=== PATIENT | female | born 1975 | race Caucasian/White ===

== ENCOUNTER 2023-11-29 10:30 | Outpatient (RCR) | payer OTHER, SELFPAY | END 2024-03-28 23:59 | disposition home or self-care (01) | PROVIDERS: Visit Provider Family Medicine | DX: M79.601 Pain in right arm (principal); M25.511 Pain in right shoulder; Z74.09 Other reduced mobility; R29.898 Other symptoms and signs involving the musculoskeletal system; Z51.89 Encounter for other specified aftercare | CPT/HCPCS: 97110; 97140; 97162; T1013 ==

== ENCOUNTER 2024-01-14 09:56 | Emergency (ER) | payer OTHER, SELFPAY ==
[2024-01-14 10:17] VITALS: BP 131/85; PULSE 89; RESP 20; TEMP 36.9; O2SAT 99; BMI 24.9
--- NOTE | 2024-01-14 10:18 | ED_ITS ---
HPI - Psych General Time Seen by Provider: 10:18 Date Seen: 01/14/24 Chief Complaint: Psychiatric Problem/Disorder Stated Complaint: Depression Time Seen by Provider: 01/14/24 10:18 Source: patient, RN notes reviewed and old records reviewed Mode of arrival: ambulatory Limitations: no limitations History of Present Illness HPI Narrative: 48-year-old female who presents today with depression. Patient reports history of depression after traumatic injury in which she lost part of a finger on the left hand. 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 Previously, she had been on antidepressants but since she did not have insurance she has not been taking medications or seen a therapist. She reports that she feels hopeless. She reports suicide ideation of jumping in front of a car or crushing a car into something Related Data Previous Rx's ?Medication ?Instructions ?Recorded lorazepam 0.5 mg tablet (Ativan) 0.5 mg PO TID PRN #6 tabs 01/14/24 Allergies Allergy/AdvReac Type Severity Reaction Status Date / Time No Known Drug Allergies Allergy Verified 01/14/24 10:23 [facility] Social History Smoking Status: Never smoker Do you use any of these nicotine containing products: None How often do you have a drink containing alcohol: never How often do you have six or more drinks on one occasion: Never AUDIT-C Alcohol total score: 0 Non-prescribed substance use: denies use Exam Narrative: Exam Narrative: General: Well-developed and well-nourished, no acute distress Head: Atraumatic and normocephalic Eyes: Pupils are equal reactive, extraocular motions intact, conjunctiva clear ENT: External nose and ears are normal, posterior pharynx without erythema or exudate Neck: No midline cervical tenderness, full spontaneous range of motion the neck, trachea midline, no adenopathy Heart: Regular rate and rhythm no murmurs or thrills Lungs: Clear to auscultation bilaterally without wheezes or crackles Abdomen: Soft, nontender, nondistended with active bowel sounds Musculoskeletal: No tenderness, deformity, or edema Neurologic: Awake, alert, and oriented x3, no gross focal neurologic deficits, cranial nerves intact as tested Psych: Admits to depression, suicide ideation with a plan Skin: No rashes Const: Vital Signs, click to edit/add: Vital Signs - 24 hr 01/14/24 10:17 Temperature 98.5 F Pulse Rate [Pulse Oximeter] 89 Respiratory Rate 20 Blood Pressure [Ri ght Upper Arm] 131/85 Pulse Oximetry 99 Oxygen Delivery Me thod Room Air Course Course ED Course: Patient seen examined, presents today with depression. Patient reports stress at work and sounds like she was fired this morning, says she feels desperate and would like to jump from a car or pressure cart something. She is quite tearful, poor eye contact. Will have social work see the patient, with patient can contract for safety could be discharged but with acute stress an underlying history of depression would have low threshold for behavioral health admission. Reevaluation(s) Time of Reevaluation #1: 13:22 Reevaluation #1: Discussed with social work after Behavioral Health evaluation. Patient does not want to be admitted, has family support at home, able contract for safety. Outpatient resources are given along with a small number of Ativan to be used as needed. Vital Signs Vital signs: Initial Vital Signs Temperature 98.5 F 01/14/24 10:17 Temperature Source Temporal Artery Scan 01/14/24 10:17 Pulse Rate 89 01/14/24 10:17 Respiratory Rate 20 01/14/24 10:17 Blood Pressure 131/85 01/14/24 10:17 Blood Pressure Mean 100 01/14/24 10:17 Pulse Oximetry 99 01/14/24 10:17 Oxygen Delivery Method Room Air 01/14/24 10:17 Vital Signs Temperature 98.5 F 01/14/24 10:17 Pulse Rate 89 01/14/24 10:17 Respiratory Rate 20 01/14/24 10:17 Blood Pressure 131/85 01/14/24 10:17 Pulse Oximetry 99 01/14/24 10:17 Oxygen Delivery Method Room Air 01/14/24 10:17 Temperature 98.5 F 01/14/24 10:17 Pulse Rate 89 01/14/24 10:17 Respiratory Rate 20 01/14/24 10:17 Blood Pressure 131/85 01/14/24 10:17 Pulse Oximetry 99 01/14/24 10:17 Oxygen Delivery Method Room Air 01/14/24 10:17 Medications Administered Medications: Discontinued Medications Generic Name Dose Route Start Last Admin Trade Name Freq PRN Reason Stop Dose Admin Acetaminophen 1,000 mg 01/14/24 11:23 01/14/24 11:31 Acetaminophen 500 Mg Tablet PO 01/14/24 11:24 1,000 mg ONCE ONE Administration Discharge Plan Discharge Clinical Impression: Depression, Situational depression Patient Disposition: Home, Self-Care Condition: Stable Instructions: Depression (ED) Additional Instructions: Follow-up with mental health provider as an outpatient Contact [facility] for further mental health resource Activity Level: No Restrictions Discharge Diet: Regular Prescriptions: New lorazepam [Ativan] 0.5 mg tablet 0.5 mg PO TID PRNQty: 6 0RF Follow Up/Referrals: Provider,Not a Local [Primary Care Provider] - Stand Alone Forms: [employer] Info Instructions
--- NOTE | 2024-01-14 10:37 | ED.NURSE ---
Message left with SW to come and assess patient.
[2024-01-14] MEDS: ACETAMINOPHEN 500 MG TABLET 1000 MG PO (11:31)
== END 2024-01-14 13:46 | disposition home or self-care (01) ==
PROVIDERS: Emergency Provider Family Medicine
DX: F32.A Depression, unspecified (principal)
CPT/HCPCS: 99283; 99285; A9270

== ENCOUNTER 2025-01-10 10:58 | Emergency (ER) | payer OTHER, SELFPAY ==
--- OUTSIDE RECORDS SUMMARY | 2025-01-10 11:01 | XMS_ITS | Clinical Summary ---
Author Organization [employer] [facility] Address [address] [place] [id number] Care Team Providers Care Desk Lieutenant Name Role Phone Pcp, No Primary Care Provider Unavailabl e Allergies No known active allergies Medications naproxen (NAPROSYN) 500 mg tabletIndication s:Right arm pain Take 1 Tablet (500 mg) by mouth every 12 hours if needed for Pain. 30 Tablet 1 4 Active lidocaine 5 % topical patchIndications :Right shoulder pain, unspecified chronicity Apply on dry, clean, hairless skin. Apply 1 patch to painful area of skin for up to to 12 hours within 24 hour period. 30 Patch 1 4 Active sertraline (ZOLOFT) 100 mg tabletIndication s:Severe depression (HC) Take 1 Tablet (100 mg) by mouth once daily. 60 Tablet 4 Active Active Problems No known active problems Social History Tobacco Use Types Packs/Day Years Used Date Smoking Tobacco: Never Smokeless Tobacco: Never Tobacco Cessation:Counseling Given: Yes Alcohol Use Standard Drinks/Week Comments Not Currently 0 (1 standard drink = 0.6 oz pur e alcohol) PHQ-2 Answer Date Recorded PHQ-2 TOTAL SCORE 2 03/06/2024 Social Connections Answer Date Recorded Do you often feel lonely or isolated from those around you? 0 11/08/2023 Financial Resource Strain Answer Date R ecorded Difficulty of Paying Living Expenses 3 11/08/2023 Difficulty of Paying Living Expenses Not on file 11/08/2023 Food Insecurity Answer Date Recorded Do you worry your food will run out before you are able to buy more? 1 11/08/2023 Transportation Needs Answer Date Record ed Does lack of transportation keep you from medica l appointments? 1 11/08/2023 Does lack of transportation keep you from work, meetings or getting things that you need? 1 11/08/2023 Housing Stability Answer Date Recorded What is your housing situation today? 1 11/08/2023 Utilities Answer Date Recorded Do you have trouble paying f or utilities (for example, heat, electricity, water, phone)? 1 11/08/2023 Comments No Sex and Gender Information Value Date Recorded Sex Assigned at Not on file Legal Sex Female 10:08 AM [employer] Gender Identity Not on file Sexual Orientation Not on file Obstetrics History Last Filed Vital Signs Vital Sign Reading Time Taken Comments Blood Pressure 106/69 03/06/2024 4:12 PM CDT Pulse 82 03/06/2024 4:12 PM CDT Temperature - - Respiratory Rate - - Oxygen Saturation 100% 12/16/2021 8:47 AM CDT Inhaled Oxygen Concentration - - Weight 76.7 kg (169 lb) 01/24/2024 4:09 PM CDT Height 164.5 cm (5' 4.75) 12/16/2021 8:47 AM CD T Body Mass Index 28.34 12/16/2021 8:47 AM CDT Plan of Treatment Health Maintenance Due Date Last Done Comments Tdap 10/09/1986 HIV for age 15-65 10/09/1990 Hepatitis C screening for age 18-79 10/09/1993 Hepatitis B series for 19+ (1 of 3 - 19+ 3-dose series) 10/09/1994 Tetanus booster 1995 Colonoscopy through age 75 10/09/2020 Lipids for age 45-75 10/09/2020 Mammogram for age 45-75 10/09/2020 BMI (ht and wt on same day) for age 18+ 12/16/2022 12/16/2021, 07/03/2021 COVID-19 vaccine series ( season) 2024 11/22/2021, 11/21/2020, 10/23/2020 Depression screening for age 12+ 03/06/2025 03/06/2024, 01/24/2024, 12/06/2023, Additional history exists Influenza Vaccine (Season Ended) 2025 Pap test for age 21-65 03/14/2027 , 03/14/2024, 11/30/2022, Additional history exists Pneumococcal series for age 6-49 Aged Out No longer eligible based on patient's age to complete this topic Procedures Procedure Name Priority Date/Time Associated Diagnosis Comments [employer] THIN PREP PAP DIAGNOSTIC IMAGED Routine 03/14/2024 1:45 PM CDT from Last 3 Months or Most Recently Relevant to Health Maintenance Results * [employer] THIN PREP PAP DIAGNOSTIC IMAGED (03/14/2024 1:45 PM CDT) Case Report Gynecologic Cytology Report Case: [id number] Authorizing Provider: Sena Pena MD Collected: 03/14/2024 1345 Ordering Location: [facility] Received: 03/15/[address] [place] [address] Center First Screen: Mainor Schulte Specimen: [employer] ThinPrep Vial Diagnostic, Cervix 03/22/2024 2:16 PM CDT [facility] INTERPRETATION/ RESULT NEGATIVE FOR INTRAEPITHELIAL LESION OR MALIGNANCY (NIL) (none) 03/22/2024 2:16 PM CDT [employer] [facility] ENTRAL LABORATORY at 1416 CDT SPECIMEN ADEQUACY Satisfactory for evaluation No endocervical component seen 03/22/2024 2:16 PM CDT [employer] ENTRAL LABORATORY HPV REQUEST HPV and PAP 03/22/2024 2:16 PM CDT [facility] ENTRAL LABOR[facility]ORY Last Pap Result First Pap/Unknown 2:16 PM CDT [employer] [facility] ENTRAL LABORATORY [place] Bx Done Today No 03/22/2024 2:16 PM CDT [employer] [facility] EN[facility] LAB[facility] Additional Information 03/22/2024 2:16 PM CDT [employer] [facility] ENTR[facility] LAB[facility]ORY Comment: Interpreted at [facility] - [facility], [facility] [place] [address] Automated Review Successful 03/22/2024 2:16 PM CDT [employer] [facility] ENTRAL LABORATORY Comment:Specimen processed s uccessfully by automated cinder block maker device, ThinPrep Imaging System, [employer] ANCILLARY TESTING [employer] HPV Ordered, Please see separate report 03/22/2024 2:16 PM CDT [employer] LABORATORY-C ENTRAL LABORATORY Note The pap test is a screening technique, not a diagnostic procedure. It is used primarily to screen for squamous cancers and precursor lesions. Published studies have shown that it is subject to both false negative and false positive results. The pap test should not be used as the sole means to diagnose or exclude pre-malignant and malignant lesions. 03/22/2024 2:16 PM CDT [employer] LABORATORY-C ENTRAL LABORATORY Other SPECIMEN FROM UTERINE CERVIX / Unknown 03/14/2024 1:45 PM CDT 03/15/2024 1:48 PM CDT Sena Pena MD PATHOLOGY/CYTOLOGY Final R esult [facility] LAB[facility]ATORY-CENTRAL LABORATORY [address] [place] [address], [place] from Last 3 Months or Most Recently Relevant to Health Maintenance Insurance [facility] Care Teams Desk Lieutenant Relationship Specialty Start Date End Date Pcp, No . PCP - General 07/03/21
--- OUTSIDE RECORDS SUMMARY | 2025-01-10 11:01 | XMS_ITS | Clinical Summary ---
Author Organization [facility] Address [address] [place] [id number] Care Team Providers Care Signal Maintainer Name Role Phone No Ref-Primary, Physician Primary Care Provider Medications HYDROcodone-acet aminophen (NORCO) 5-325 MG tablet Take 1 tablet by mouth every 4 hours as needed for pain 12 tablet 04/23/2021 Active Immunizations Immunization Administration Dates Next Due TDAP (Adacel,Boostrix) 04/23/2021 Social History Tobacco Use Types Packs/Day Years Used Date Smoking Tobacco: Never Assessed Adolescent Education Answer Date Record ed Getting School Help Needed Not on file 04/24 Comments Unknown Sex and Gender Information Value Date Recorded Sex Assigned at Not on file Legal Sex Female 3:24 AM CDT Gender Identity Not on file Sexual Orientation Not on file Last Filed Vital Signs Vital Sign Reading Time Taken Comments Blood Pressure 123/85 04/23/2021 3:26 AM CDT Pulse 95 04/23/2021 3:26 AM CDT Temperature - - Respiratory Rate 16 04/23/2021 3:26 AM CDT Oxygen Saturation 100% 04/23/2021 3:26 AM CDT Inhaled Oxygen Concentration - - Weight - - Height - - Body Mass Index - - Plan of Treatment Not on file Insurance [facility] [employer] Care Teams Signal Maintainer Relationship Specialty Start Date End Date No Ref-Primary, Physician PCP - General 04/23/21
[2025-01-10 11:20] VITALS: BP 117/75; PULSE 100; RESP 20; TEMP 36.8; O2SAT 99; BMI 27.3
--- NOTE | 2025-01-10 12:22 | CRLHL7_ITS ---
For Patients: As a result of the Century Cures Act, medical imaging exams and procedure reports are released immediately into your electronic medical record. You may view this report before your referring provider. If you have questions, please contact your health care provider. INDICATION: Lower abdominal pain. TECHNIQUE: CT abdomen and pelvis acquired with 85 cc Isovue 370 IV contrast. COMPARISON: None. FINDINGS: Lower chest: Unremarkable. Liver: Unremarkable. Gallbladder and bile ducts: Unremarkable. No stones or inflammation. No biliary dilatation. Pancreas: Unremarkable. No mass or inflammation. Spleen: Unremarkable. Normal in size. No masses. Adrenal glands: Unremarkable. No nodules. Kidneys: Unremarkable. No suspicious masses, stones, or hydronephrosis. GI tract: Mild colonic diverticulosis. Normal in caliber. There is a calcified appendicolith in the appendiceal base, but the appendix is normal in size with no evidence of wall thickening or surrounding inflammatory changes. Vasculature: Abdominal aorta is normal in caliber. Mesenteric arteries are patent. Lymph nodes: No lymphadenopathy. Peritoneum/Abdominal Wall: Unremarkable. No sign of mass or infiltration. No free air or significant free fluid. Pelvis: Unremarkable. Bones: Unremarkable for age. IMPRESSION: No acute findings in the abdomen or pelvis. Please note that all CT scans at this facility use dose modulation, iterative reconstruction, and/or weight-based dosing when appropriate to reduce radiation dose to as low as reasonably achievable. Dictated by Leopoldo Silvestre MD @ 01/10/2025 1:26:04 PM (Electronically Signed)
--- NOTE | 2025-01-10 12:23 | ED.ABDPAIN ---
HPI - Abdominal Pain General Chief Complaint: Abdominal Pain Stated Complaint: 2 months abdominal pain- Time Seen by Provider: 01/10/25 11:00 History of Present Illness HPI narrative: This 49-year-old female comes in reporting severe abdominal pain that has been present most of the past 2 and half months. She states that she has associated nausea but no vomiting. She has also had some diarrhea. She does not report any fevers. The pain is worse when taking food. She ranks the pain at 10/10 in severity. Related Data Previous Rx's ?Medication ?Instructions ?Recorded ketorolac 10 mg tablet 10 mg PO TID 5 days #15 tabs 01/10/25 methylprednisolone 4 mg tablets in See Rx Instructions PO .COMPLEX 01/10/25 a dose pack (Medrol (Florentin)) #21 ea ondansetron HCl 4 mg tablet 4 mg PO Q6H #20 tabs 01/10/25 Allergies Allergy/AdvReac Type Severity Reaction Status Date / Time No Known Drug Allergies Allergy Verified 01/10/25 11:32 Review of Systems Status of ROS Reports: 10 or more systems reviewed and unremarkable except as noted in History and below Narrative Constitutional: No fevers, no weight gain or loss. Eyes: No discharge. No vision changes. HENT: No congestion, no sore throat, no ear pain. Cardiovascular: No chest pain, no palpitations. Respiratory: No shortness of breath, no wheezes, no cough. Gastrointestinal: Abdominal pain with nausea and diarrhea episodes. Genitourinary: No dysuria, no hematuria. Musculoskeletal: Normal range of motion. Skin: No rashes, no pruritis. Neurological: No dizziness, weakness, sensory change, speech change. Endo/Heme/Allergies: No bruising or bleeding. No polydipsia. Pysch: no suicidality, no anxiety, no insomnia. All other systems reviewed and are negative. PFSH PFSH Social History Smoking Status: Never smoker Do you use any of these nicotine containing products: None Second hand tobacco smoke exposure: No How often do you have a drink containing alcohol: never How often do you have six or more drinks on one occasion: Never AUDIT-C Alcohol total score: 0 Non-prescribed substance use: denies use service: No Exam Narrative: Exam Narrative: Constitutional: Well-developed, well-nourished, no acute distress. HEENT: Normocephalic, atraumatic. Neck: Normal range of motion. Nontender. Supple. Heart: Regular. No murmurs. Normal rate. Intact distal pulses. Lungs: Clear to auscultation. No chest discomfort. No wheezes, rhonchi, or rales. Abdomen: Decreased bowel sounds. Tenderness across the lower abdomen. Mild rebound tenderness. Genitalia: Deferred. Back: No midline tenderness. Normal range of motion. Extremities: Normal range of motion. No injury. Skin: Intact. No rash. Warm. No erythema or pallor. Neurologic: No altered sensation. No weakness. Alert and oriented. Psychiatric: No suicidality. No anxiety or depression. No insomnia. Nursing notes and vitals signs are reviewed. Const: Vital Signs, click to edit/add: Vital Signs - 24 hr 01/10/25 11:20 01/10/25 15:31 Temperature 98.3 F 97.8 F Pulse Rate [Pulse Oximeter] 100 89 Respiratory Rate 20 16 Blood Pressure [Ri t Upper Arm] 117/75 107/64 Pulse Oximetry 99 97 Oxygen Delivery Me thod Room Air Room Air Course Vital Signs Vital signs: Initial Vital Signs Temperature 98.3 F 01/10/25 11:20 Temperature Source Oral 01/10/25 11:20 Pulse Rate 100 01/10/25 11:20 Respiratory Rate 20 01/10/25 11:20 Blood Pressure 117/75 01/10/25 11:20 Blood Pressure Mean 89 01/10/25 11:20 Blood Pressure Position Sitting 01/10/25 11:20 Pulse Oximetry 99 01/10/25 11:20 Oxygen Delivery Method Room Air 01/10/25 11:20 Vital Signs Temperature 98.3 F 01/10/25 11:20 Pulse Rate 100 01/10/25 11:20 Respiratory Rate 20 01/10/25 11:20 Blood Pressure 117/75 01/10/25 11:20 Pulse Oximetry 99 01/10/25 11:20 Oxygen Delivery Method Room Air 01/10/25 11:20 Temperature 97.8 F 01/10/25 15:31 Pulse Rate 89 01/10/25 15:31 Respiratory Rate 16 01/10/25 15:31 Blood Pressure 107/64 01/10/25 15:31 Pulse Oximetry 97 01/10/25 15:31 Oxygen Delivery Method Room Air 01/10/25 15:31 Medications Administered Medications: Discontinued Medications Generic Name Dose Route Start Last Admin Trade Name Anahi PRN Reason Stop Dose Admin Hydromorphone HCl 0.5 mg 01/10/25 12:22 01/10/25 12:50 Hydromorphone 0.5 Mg/0.5 Ml Inj IVP 01/10/25 12:23 0.5 mg ONCE ONE Administration Ondansetron HCl 4 mg 01/10/25 12:22 01/10/25 12:50 Ondansetron 2 Mg/Ml Inj IVP 01/10/25 12:23 4 mg ONCE ONE Administration MDM - Abdominal Pain MDM Narrative Medical decision making narrative: This patient comes in with abdominal pain in her lower abdomen for the past 2 months. An IV was established where she did receive Dilaudid 0.5 mg. This brought some relief to her pain. I did obtain CT imaging of her abdomen and pelvis and this returns with normal findings except for an appendical with that seems to be inconsequential. There is no sign of appendicitis. Her white count is normal and C-reactive protein is also normal. I did consult with the surgeon on-call, Dr. Carver who looked at the images and stated that this is not an obvious cause of her pain but nevertheless the patient could be admitted and consider removal of the appendix if desired. I explained these options to the patient and she chose to return home for now and will return if not improving or worsening. I did provide prescriptions for her including Toradol, Zofran, and a Medrol Dose Pack. Patient does state that she has pain in her back also. Her pain may be radiating from her low back into her abdomen. Lab Data Labs: Lab Results 01/10/25 Range/Units 12:56 WBC 5.51 (4.50-11.00) K/uL RBC 4.94 (4.00-5.20) m/uL Hgb 8.8 L (12.0-16.0) gm/dL Hct 31.1 L (33.0-51.0) % MCV 63 L (80-100) fL MCH 18 L (26-34) pg MCHC 28 L (32-36) gm/dL RDW Coeff of Spencer 18.3 H (11.5-15.5) % Plt Count 343 (140-440) K/uL Neut % (Auto) 55.0 (42.0-72.0) % Lymph % (Auto) 34.1 (20-44) % [place] % (Auto) 7.8 (0.0-11.0) % Eos % (Auto) 2.2 (0.0-7.0) % Baso % (Auto) 0.7 (0.0-3.0) % Neut # (Auto) 3.03 (1.7-7.0) K/uL Lymph # (Auto) 1.88 (0.90-2.90) K/uL [place] # (Auto) 0.40 (0.00-0.90) K/UL Eos # (Auto) 0.12 (0.00-0.50) K/uL Baso # (Auto) 0.04 (0.00-0.30) K/uL Abs Immat Gran (auto) 0.01 (0.00-0.30) K/uL Imm/Tot Granulo (auto) 0.2 % Sodium 138 (135-149) mmol/L Potassium 3.8 (3.6-5.1) mmol/L Chloride 103 (96-114) mmol/L Carbon Dioxide 25 (20-32) mmol/L Anion Gap 10 (7-15) mEq/L BUN 18 (5-24) mg/dL Creatinine 0.9 (0.5-1.5) mg/dL Estimated Creat Clear 70.78 Estimated GFR 78 ml/min Glucose 122 H (60-115) mg/dL Calcium 9.8 (8.4-10.6) mg/dL Total Bilirubin 0.3 (0.1-1.5) mg/dL Direct Bilirubin 0.1 (0.0-0.5) mg/dL AST 25 (12-35) U/L ALT 26 (4-35) U/L Alkaline Phosphatase 75 (40-150) U/L C-Reactive Protein < 0.5 L (0.5-1.0) mg/dL Total Protein 8.5 H (6.0-8.3) g/dL Albumin 4.5 (3.3-5.0) g/dL Lipase 89 (23-300) U/L Discharge Plan Discharge Clinical Impression: Abdominal pain Patient Disposition: Home, Self-Care Condition: Stable Additional Instructions: Take medication as prescribed and needed. Use [id number] medicines also as needed and directed. Follow up with MD or return if symptoms are persistent or worsening. Prescriptions: New ondansetron HCl 4 mg tablet 4 mg PO Q6H Qty: 20 0RF ketorolac 10 mg tablet 10 mg PO TID 5 Days Qty: 15 0RF methylprednisolone [Medrol (Florentin)] 4 mg tablets,dose pack See Rx Instructions .ROUTE .COMPLEX Qty: 21 0RF Rx Instructions: orally per package directions Follow Up/Referrals: Provider,Not a Local [Primary Care Provider, Family Practice] Stand Alone Forms: [employer] Info Instructions
[2025-01-10] MEDS: ONDANSETRON 2 MG/ML inj 4 MG IVP (12:50)
[2025-01-10] MEDS: HYDROmorphone 0.5 mg/0.5 ml inj IVP (12:50)
[2025-01-10 13:04] LABS: Basophils Absolute Auto 0.04 K/uL (0.00-0.30); Basophils Percent Auto 0.7 % (0.0-3.0); Eosinophils Absolute Auto 0.12 K/uL (0.00-0.50); Eosinophils Percent Auto 2.2 % (0.0-7.0); Hematocrit 31.1 % (33.0-51.0); Hemoglobin* 8.8 gm/dL (12.0-16.0); Immature Granulocytes Abs Auto 0.01 K/uL (0.00-0.30); Immature Granulocytes Pct Auto 0.2 %; Lymphocytes Absolute Auto 1.88 K/uL (0.90-2.90); Lymphocytes Percent Auto 34.1 % (20-44); Mean Corpuscular HGB Conc 28 gm/dL (32-36); Mean Corpuscular Hemoglobin 18 pg (26-34); Mean Corpuscular Volume 63 fL (80-100); Monocytes Percent Auto 7.8 % (0.0-11.0); Neutrophils Absolute Auto 3.03 K/uL (1.7-7.0); Platelet Count* 343 K/uL (140-440); RDW Coefficient of Variation % 18.3 % (11.5-15.5); Red Blood Count 4.94 m/uL (4.00-5.20); White Blood Count* 5.51 K/uL (4.50-11.00)
[2025-01-10 13:12] LABS: Slide Review Reflex No
[2025-01-10 13:18] LABS: Albumin* 4.5 g/dL (3.3-5.0); Chloride* 103 mmol/L (96-114); Potassium* 3.8 mmol/L (3.6-5.1); Sodium* 138 mmol/L (135-149)
[2025-01-10 13:20] LABS: Alanine Aminotransferase* 26 U/L (4-35); Anion Gap 10 mEq/L (7-15); Aspartate Amino Transferase* 25 U/L (12-35); Blood Urea Nitrogen* 18 mg/dL (5-24); Carbon Dioxide* 25 mmol/L (20-32); Creatinine* 0.9 mg/dL (0.5-1.5); Est. Creatinine Clearance* 70.78; Estimated Glomerular Filt Rate 78 ml/min
[2025-01-10 13:21] LABS: Alkaline Phosphatase* 75 U/L (40-150); Bilirubin Direct* 0.1 mg/dL (0.0-0.5); Bilirubin Total* 0.3 mg/dL (0.1-1.5); Calcium* 9.8 mg/dL (8.4-10.6); Glucose* 122 mg/dL (60-115); Lipase* 89 U/L (23-300); Total Protein* 8.5 g/dL (6.0-8.3)
[2025-01-10 15:26] LABS: C Reactive Protein* < 0.5 mg/dL (0.5-1.0)
[2025-01-10 15:31] VITALS: BP 107/64; PULSE 89; RESP 16; TEMP 36.6; O2SAT 97
== END 2025-01-10 16:13 | disposition home or self-care (01) ==
PROVIDERS: Emergency Provider Emergency Medicine Emergency Medical Services
DX: R10.9 Unspecified abdominal pain (principal); R11.0 Nausea; R19.7 Diarrhea, unspecified
CPT/HCPCS: 36415; 74177; 80048; 80076; 83690; 85025; 86140; 96374; 96375; 99284; 99285; J1171; J2405; Q9967

== ENCOUNTER 2025-01-30 21:12 | Emergency (ER) | payer MEDICAID, OTHER, SELFPAY ==
--- OUTSIDE RECORDS SUMMARY | 2025-01-11 13:50 | XMS_ITS | Encounter Summary ---
Author Organization [facility] Address [address] [place] [address] Care Team Providers Care Manager Corporate Communications Name Role Phone Marlin Veloz Primary Care Provider Reason for Visit * Reason Comments Pelvic Pain Encounter Details Date Type Department Care Team (Late st Contact Info) Description 01/11/2025 1:50 PM CDT Office Visit [place] [facility] [address] [place] [address] Luiz Carrillo APRN,PORFIRIO [address] [place] [address] Social History Tobacco Use Types Packs/Day Years Used Date Smoking Tobacco: Never Smokeless Tobacco: Never Alcohol Use Standard Drinks/Week Comments Not Currently 0 (1 standard drink = 0.6 oz pur e alcohol) Comments Unknown Sex and Gender Information Value Date Recorded Sex Assigned at Not on file Legal Sex Female 9:35 AM PST Gender Identity Female 09/10/2024 5:45 PM PST Sexual Orientation Straight 09/10/2024 5: 45 PM PST documented as of this encounter Last Filed Vital Signs Vital Sign Reading Time Taken Comments Blood Pressure 128/61 01/11/2025 1:17 PM CDT Pulse 91 01/11/2025 1:17 PM CDT Temperature 36.7 C (98 F) 01/11/2025 1:17 PM CDT Respiratory Rate - - Oxygen Saturation 98% 01/11/2025 1:17 PM CDT Inhaled Oxygen Concentration - - Weight 79 kg (174 lb 3.2 oz) 01/11/2025 1:17 PM CDT Height 165.5 cm (5' 5.16) 01/11/2025 1:17 PM CD T Body Mass Index 28.85 01/11/2025 1:17 PM CDT documented in this encounter Progress Notes * Luiz Carrillo, TRACEY,CNM - 01/11/2025 1:45 PM CDT Office Visit Patient Active Problem List Diagnosis Papanicolaou smear of cervix with low grade squamous intraepithelial lesion (LGSIL) Healthy Goals Neck pain, chronic Segmental and somatic dysfunction of cervical region Menorrhagia/menometrorrhagia Migraine headache with aura Heavy menstruation Adjustment disorder with mixed anxiety and depressed mood Female Stress Incontinence Insomnia Overweight (BMI 25-29.9) Segmental and somatic dysfunction of thoracic region Subjective: Jacqueline is a 49 year old here for abdominal pain for 2.5 months. It covers her entire stomach, especially her lower stomach and moves to her back. Nothing makes it better or worse. Went to the ED at [facility] and the doctor told her she had stones after performing an US. She was given Toradol, a steroid pack, and zofran. The pain is 10/10. Has taken gas medication but has not gotten any releif. Pain will sometimes go away for a couple hours but always comes back. Last BM: Today, diarrhea (Not normal) Last BM before today was Wednesday. Usually has a BM every morning that is soft and easy to pass Eating and drinking normally with no impact on her pain Objective: BP 128/61 (Right Arm, Sitting, Regular Adult) Pulse 91 Temp 98 ??F (36.7 ??C) Ht 5' 5.16 (1.655 m) Wt 174 lb 3.2 oz (79 kg) LMP 12/25/2024 (Exact Date) (Tubal ligation) SpO2 98% BMI 28.85 kg/m?? Smoking Status Never BSA 1.91 m?? Physical Exam Vitals reviewed. Constitutional: General: She is in acute distress. HENT: Head: Normocephalic and atraumatic. Cardiovascular: Rate and Rhythm: Normal rate. Pulses: Normal pulses. Heart sounds: Normal heart sounds. Pulmonary: Effort: Pulmonary effort is normal. Breath sounds: Normal breath sounds. Abdominal: General: Bowel sounds are normal. There is no distension. Palpations: Abdomen is soft. There is no mass. Tenderness: There is abdominal tenderness. There is left CVA tenderness and guarding. There is no right CVA tenderness or rebound. Hernia: No hernia is present. Genitourinary: General: Normal vulva. Rectum: Normal. Musculoskeletal: Cervical back: Normal range of motion. Skin: General: Skin is warm and dry. Neurological: Mental Status: She is alert and oriented to person, place, and time. Psychiatric: Thought Content: Thought content normal. Judgment: Judgment normal. Pelvic exam: External Genitalia: normal appearing with no masses, tenderness or lesions, Vagina: noabnormal discharge or lesions, Cervix: no lesions or cervical motion tenderness, Uterus: normal andnontender, Adnexa: not palpable. UPT: Negative Wet mount: Neg UA: Neg Paperwork from [facility] (Not found in care everywhere) Showed a HGB of 8.2 Assessment and Plan: Present to the ED for further workup and assessment of severe abdominal pain Return to primary care to follow-up with anemia found in [facility] on 01/19/2025 1. Lower abdominal pain (Primary) - [facility] Vaginal Vaginal Routine; Future 2. Acute left-sided thoracic back pain - HCG, QL, URINE Urine Routine; Future - [facility] Vaginal Vaginal Routine; Future - URINALYSIS, COMPLETE W/REFLEX TO CULTURE Urine Routine; Future 3. Encounter for test, result unknown - HCG, QL, URINE Urine Routine; Future Other orders - HCG, QL, URINE Routine - URINALYSIS, COMPLETE W/REFLEX TO CULTURE Routine - RFLX - REFLEXIVE URINE CULTURE Routine - [facility] Routine Luiz Carrillo APRN, CNM 01/11/25 1:45 PM CDT documented in this encounter Plan of Treatment Scheduled Orders Name Type Priority Associated Diagnoses Orde r Schedule URINALYSIS, COMPLETE W/REFLEX TO CULTURE Urine Routine Lab Routine Acute left-sided thoracic back pain 1 Occurrences starting 01/11/2025 until 07/10/2025 documented as of this encounter Procedures Procedure Name Priority Date/Time Associated Diagnosis Comments HCG, QL, URINE Routine 01/11/2025 12:00 AM CDT Lower abdominal pain URINALYSIS, COMPLETE W/REFLEX TO CULTURE Routine 01/11/2025 12:00 AM CDT Lower abdominal pain RFLX - REFLEXIVE URINE CULTURE Routine 01/11/2025 12:00 AM CDT Lower abdominal pain [facility] AGT Routine 01/11/2025 12:00 AM CDT Lower abdominal pain documented in this encounter Results * [facility] AGT Routine (01/11/2025 12:00 AM CDT) SOURCE VAGINA 01/11/2025 2:43 PM CDT [facility] Wet Prep SEE NOTE 01/11/2025 2:43 PM CDT [facility] 01/11/2025 12:0 0 AM CDT 01/11/2025 2:20 PM CDT Narrative [facility] - [facility] - 01/11/2025 2:45 PM CDT EPI CELLS SEEN CLUE CELLS NONE SEEN TRICH NONE SEEN YEAST NONE SEEN us Luiz Carrillo APRN, CNM LAB - NO BLOOD DRAW Sarina l Result [facility] [phone] [facility] [address] [place] [address] * RFLX - REFLEXIVE URINE CULTURE Routine (01/11/2025 12:00 AM CDT) REFLEXIVE URINE CULTURE SEE NOTE 01/11/2025 2:41 PM CDT [facility] 01/11/2025 12:0 0 AM CDT 01/11/2025 2:20 PM CDT Narrative [facility] - 01/11/2025 2:45 PM CDT NO CULTURE INDICATED us Luiz Carrillo APRN, CNM LAB - MICROBIOLOGY AMBUL ATORY Final Result [facility] [address] [place] [address] [facility] [place] [address] [place] [address] * (ABNORMAL) URINALYSIS, COMPLETE W/REFLEX TO CULTURE Routine (01/11/2025 12:00 AM CDT) COLOR YELLOW YELLOW 01/11/2025 2:41 PM CDT [facility] APPEARANCE CLEAR CLEAR 01/11/2025 2:41 PM CDT [facility] SPECIFIC GRAVITY 1.015 1.001 - 1.035 01/11/2025 2:41 PM CDT [facility] PH 5.5 5.0 - 8.0 01/11/2025 2:41 PM CDT [facility] GLUCOSE NEGATIVE NEGATIVE 01/11/2025 2:41 PM CDT [facility] BILIRUBIN NEGATIVE NEGATIVE 01/11/2025 2:41 PM CDT [facility] KETONES NEGATIVE NEGATIVE 01/11/2025 2:41 PM CDT [facility] OCCULT BLOOD NEGATIVE NEGATIVE 01/11/2025 2:41 PM CDT [facility] PROTEIN NEGATIVE NEGATIVE 01/11/2025 2:41 PM CDT [facility] NITRITE NEGATIVE NEGATIVE 01/11/2025 2:41 PM CDT [facility] LEUKOCYTE ESTERASE NEGATIVE NEGATIVE 01/11/2025 2:41 PM CDT [facility] WBC 0-5 0 - 5 /HPF 01/11/2025 2:41 PM CDT [facility] RBC NONE SEEN 0 - 2 /HPF 01/11/2025 2:41 PM CDT [facility] SQUAMOUS EPITHELIAL CELLS 0-5 < OR = 5 /HPF 01/11/2025 2:41 PM CDT [facility] BACTERIA FEW(A) NONE SEEN /HPF 01/11/2025 2:41 PM CDT [facility] HYALINE CAST NONE SEEN NONE SEEN /LPF 01/11/2025 2:41 PM CDT [facility] COMMENTS MODERATE MUCOUS THREADS 01/11/2025 2:41 PM CDT [facility] NOTE SEE NOTE 01/11/2025 2:41 PM CDT [facility] 01/11/2025 12:0 0 AM CDT 01/11/2025 2:20 PM CDT Narrative [facility] - [facility] - 01/11/2025 2:45 PM CDT This urine was analyzed for the presence of WBC, RBC, bacteria, casts, and other formed elements. Only those elements seen were reported. . . Luiz Carrillo APRN, CNM LAB URINE AMBULATORY Fin al Result Performing Organization Address City/[facility]/ZIP Co de Phone Number [facility] - [id number] [phone] [facility] [address] [place] [address] * HCG, QL, URINE Routine (01/11/2025 12:00 AM CDT) HCG, QL, URINE NEGATIVE NEGATIVE 01/11/2025 2:26 PM CDT [facility] 01/11/2025 12:0 0 AM CDT 01/11/2025 2:20 PM CDT Luiz Carrillo APRN, CNM LAB URINE AMBULATORY Fin al Result Performing Organization Address City/[facility] Co de Phone Number [facility] [employer] [facility] [phone] [facility] [address] [place] [address] documented in this encounter Visit Diagnoses Diagnosis Lower abdominal pain- Primary Abdominal pain, other specified site Acute left-sided thoracic back pain Encounter for test, result unknown documented in this encounter Additional Health Concerns Assessment Noted Time PHQ-9 Depression Total Score: 1 05/09/20 24 12:30 PM PDT documented as of this encounter Care Teams Manager Corporate Communications Relationship Specialty Start Date End Date Marlin Veloz [address] [place] [address] PCP - General 09/10/24 documented as of this encounter
--- OUTSIDE RECORDS SUMMARY | 2025-01-16 15:10 | XMS_ITS | Encounter Summary ---
Author Organization [facility] Address [address] [place] [address] Care Team Providers Care Local Company Refrigerated Truck Driver Name Role Phone Marlin Veloz Primary Care Provider [phone] Reason for Referral * Obstetrics & Gynecology (Urgent) - Open Specialty Diagnoses / Procedures Referred By Myra wolf Referred To Contact Diagnoses Generalized abdominal pain Uterine leiomyoma, unspecified location Atiya Boykin CNM [address] [place] [address] Phone: tel: fax: [facility], [address] [place] [address] Phone: tel: fax: Referral ID Status Reason Start Date Expiration Date V isits Requested Visits Authorized [id number] Open Specialty Services Required 01/17/2025 01/17/2026 1 1 Comments Uterine fibroid. Patient has severe pain that was evaluated in the ER, discovered leiomyoma. Reason for Visit * Reason Comments Follow Up Abdominal pain Encounter Details Date Type Department Care Team (Late st Contact Info) Description 01/16/2025 3:10 PM CDT Office Visit [place] Super[facility] [address] [place] [address] Atiya Boykin CNM [address] [place] [address] Social History Tobacco Use Types [...] Sign Reading Time Taken Comments Blood Pressure 108/58 01/16/2025 3:19 PM CDT Pulse 86 01/16/2025 3:19 PM CDT Temperature 36.9 C (98.4 F) 01/16/2025 3:19 PM CDT Respiratory Rate 18 01/16/2025 3:19 PM CDT Oxygen Saturation 97% 01/16/2025 3:19 PM CDT Inhaled Oxygen Concentration - - Weight 80.4 kg (177 lb 3.2 oz) 01/16/2025 3:19 P M CDT Height 165.5 cm (5' 5.16) 01/16/2025 3:19 PM CD T Body Mass Index 29.35 01/16/2025 3:19 PM CDT documented in this encounter Progress Notes * Atiya Boykin, PORFIRIO - 01/17/2025 12:35 PM CDT Office Visit Patient Active Problem List Diagnosis Papanicolaou smear of cervix with low grade squamous intraepithelial lesion (LGSIL) Healthy Goals Neck pain, chronic Segmental and somatic dysfunction of cervical region Menorrhagia/menometrorrhagia Migraine headache with aura Heavy menstruation Adjustment disorder with mixed anxiety and depressed mood Female Stress Incontinence Insomnia Overweight (BMI 25-29.9) Segmental and somatic dysfunction of thoracic region Subjective: Jacquleine is a 49 year old here with continued abdominal pain. She reports that the pain started about2 months ago and worsened on the 12th last week. She was seen at the clinic and then at the ER thatday. It was found that she has a uterine leiomyoma. There was no other indication for the pain. Shereports that the pain remains a 10/10. She is taking Tylenol and Ibuprofen during the day and oxycod one at night. She reports that now she is constipated and has bloating. Last bowel movement was 4 days ago. Objective: BP 108/58 (Right Arm, Sitting, Regular Adult) Pulse 86 Temp 98.4 ??F (36.9 ??C) Resp 18 Ht 5' 5.16 (1.655 m) Wt 177 lb 3.2 oz (80.4 kg) LMP 12/25/2024 (Exact Date) (Tubal ligation) SpO2 97% BMI 29.35 kg/m?? Smoking Status Never BSA 1.92 m?? Physical Exam Constitutional: General: She is in acute distress. Abdominal: General: There is distension. Palpations: Abdomen is soft. There is no mass. Tenderness: There is abdominal tenderness. There is right CVA tenderness and guarding. Hernia: No hernia is present. Neurological: Mental Status: She is alert. Psychiatric: Behavior: Behavior normal. Recent Results (from the past 2 weeks) HCG, QL, URINE Routine Collection Time: 01/11/25 12:00 AM Result Value Ref Range HCG, QL, URINE NEGATIVE NEGATIVE URINALYSIS, COMPLETE W/REFLEX TO CULTURE Routine Collection Time: 01/11/25 12:00 AM Result Value Ref Range COLOR YELLOW YELLOW APPEARANCE CLEAR CLEAR SPECIFIC GRAVITY 1.015 1.001 - 1.035 PH 5.5 5.0 - 8.0 GLUCOSE NEGATIVE NEGATIVE BILIRUBIN NEGATIVE NEGATIVE KETONES NEGATIVE NEGATIVE OCCULT BLOOD NEGATIVE NEGATIVE PROTEIN NEGATIVE NEGATIVE NITRITE NEGATIVE NEGATIVE LEUKOCYTE ESTERASE NEGATIVE NEGATIVE WBC 0-5 0 - 5 /HPF RBC NONE SEEN 0 - 2 /HPF SQUAMOUS EPITHELIAL CELLS 0-5 < OR = 5 /HPF BACTERIA FEW (A) NONE SEEN /HPF HYALINE CAST NONE SEEN NONE SEEN /LPF COMMENTS MODERATE MUCOUS THREADS NOTE SEE NOTE RFLX - REFLEXIVE URINE CULTURE Routine Collection Time: 01/11/25 12:00 AM Result Value Ref Range REFLEXIVE URINE CULTURE SEE NOTE [facility] WET [facility] NFCT AGT Routine Collection Time: 01/11/25 12:00 AM Result Value Ref Range SOURCE VAGINA Wet Prep SEE NOTE BASIC METABOLIC PANEL BMP/CHEM7/PANEL7 (EXTERNAL) Collection Time: 01/11/25 3:40 PM Result Value Ref Range SODIUM 137 136 - 145 mmol/L POTASSIUM 4.1 3.5 - 5.1 mmol/L CHLORIDE 106 98 - 107 mmol/L CO2,TOTAL ANION GAP Unable to calculate. GLUCOSE 88 70 - 99 mg/dL CALCIUM 9.5 8.8 - 10.4 mg/dL BUN 16 6 - 20 mg/dL CREATININE 0.8 0.50 - 0.90 mg/dL BUN/CREAT RATIO 20 10 - 20 eGFR 90 (L) >90 mL/min/1.73m2 Assessment and Plan: Instructed to stop taking oxycodone. Use Tylenol or ibuprofen and heat only for pain. Increase fluid intake, may take an OTC laxative or bulking agent, increase dietary fiber 1. Generalized abdominal pain (Primary) - REFERRAL TO AGRICULTURE INSPECTOR 2. Drug-induced constipation 3. Uterine leiomyoma, unspecified location - REFERRAL TO AGRICULTURE INSPECTOR Atiya Boykin APRN, CNM 01/17/25 12:35 PM CDT documented in this encounter Plan of Treatment Scheduled Referrals Name Type Priority Associated Diagnoses Orde r Schedule REFERRAL TO AGRICULTURE INSPECTOR Referral Urgent Generalized abdominal pain Uterine leiomyoma, unspecified location Ordered: 01/17/2025 documented as of this encounter Visit Diagnoses Diagnosis Generalized abdominal pain- Primary Abdominal pain, generalized Drug-induced constipation Other constipation Uterine leiomyoma, unspecified location documented in this encounter Additional Health Concerns Assessment Noted Time PHQ-9 Depression Total Score: 1 05/09/20 24 12:30 PM PDT documented as of this encounter Care Teams Local Company Refrigerated Truck Driver Relationship Specialty Start Date End Date Marlin Veloz [address] [place] [phone] PCP - General 09/10/24 documented as of this encounter
--- OUTSIDE RECORDS SUMMARY | 2025-01-30 21:14 | XMS_ITS | Clinical Summary ---
Author Organization [facility] Address [address] [place] [id number] Care Team Providers Care Jig Grinder Name Role Phone No Ref-Primary, Physician Primary [...] Plan of Treatment Not on file Insurance [facility] [employer] Member Subscriber Plan / Payer (Ef fective 2021-Present) Name:Morena Hernandez Norma Relation to Subscriber:Employee Name:[employer] Date of :1975 (Home) Address: [address] [place] [address] Payer ID:[id number] Group ID:Not on file Type:Not on file Address: [facility] [address] [place] [address] Care Teams Jig Grinder Relationship Specialty Start Date End Date No Ref-Primary, Physician PCP - General 04/23/21
--- OUTSIDE RECORDS SUMMARY | 2025-01-30 21:14 | XMS_ITS | Clinical Summary ---
Author Organization [facility] & [facility] Address [address] [place] [address] Care Team Providers Care Aircraft Engine Specialist Name Role Phone Kendra Cheney Primary Care Provider [phone] Allergies No known active allergies Medications naproxen [...] mouth once daily. 60 Tablet 4 Active oxyCODONE 5 mg immediate release tabletIndication s:Uterine leiomyoma, unspecified location,Pelvic pain Take 1 Tablet (5 mg) by mouth 2 times daily if needed for Pain. 6 Tablet 5 01/15/20 25 Active Problems No known active problems Encounters Date Type Department Care Team Description 01/18/2025 Telephone [facility] [address] [place] [address] Lamont Botello MD Referral 01/18/2025 Transcribe Orders [facility] [address] [place] [address] Atiya Boykin CNM 01/11/2025 4:13 PM CDT - 01/11/2025 10:22 PM CDT [facility] [address] [place] [address] Aurelia Arellano DO Uterine leiomyoma, unspecified location (Primary Dx); Pelvic pain Discharge Disposition: Home Self Care 01/11/2025 Travel from Last 3 Months Social History Tobacco Use Types Packs/Day Years [...] is your housing situation today? 1 11/08/2023 Interpersonal Safety Answer Date Record ed Are you being hit, kicked, p ushed or yelled at (see row info)? No 01/11/2025 Interpersonal Safety Abuse 12 - 18 Not on file 01/11/2025 Interpersonal Safety Ambulatory Vulnerability No t on file 01/11/2025 Utilities Answer Date Recorded Do you have trouble paying f or utilities (for example, heat, electricity, water, phone)? 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 Gender Identity Not on file Sexual Orientation Not on file Obstetrics History Last Filed Vital Signs Vital Sign Reading Time Taken Comments Blood Pressure 120/73 01/11/2025 3:23 PM CDT Pulse 94 01/11/2025 3:23 PM CDT Temperature 36.7 C (98.1 F) 01/11/2025 3:23 PM CDT Respiratory Rate 16 01/11/2025 3:23 PM CDT Oxygen Saturation 100% 01/11/2025 3:23 PM CDT Inhaled Oxygen Concentration - - Weight 76.7 kg (169 lb) 01/11/2025 3:23 PM CDT Height 164.5 cm (5' 4.75) 01/11/2025 3:23 PM CD T Body Mass Index 28.34 01/11/2025 3:23 PM CDT Plan of Treatment Upcoming Encounters Date Type Department Care Team (Late st Contact Info) Description 02/07/2025 10:40 AM CDT Office Visit [facility] [address] [place] [address] Estela Hinds MBBS [address] [place] [address] Health Maintenance Due Date Last Done Comments (IA) Tdap 10/09/1986 HIV for age 15-65 10/09/1990 [...] 01/24/2024, 12/06/2023, Additional history exists Influenza Vaccine (#1) 2025 Pap test for age 21-65 03/14/2027 , 03/14/2024, 11/30/2022, Additional history exists Pneumococcal series for age 6-49 Aged Out No longer eligible based on patient's age to complete this topic Procedures Procedure Name Priority Date/Time Associated Diagnosis Comments US PELVIS COMPLETE TA AND TV STAT 01/11/2025 9:[address] ABDOMEN PELVIS STONE PROTOCOL WO STAT 01/11/2025 6:33 PM CDT UA W/ SEDIMENT EXAM REFLEXED PER CRITERIA STAT 01/11/2025 5:44 PM CDT CWS PATH REVIEW HEMATOLOGY STAT 01/11/2025 5:05 PM CDT PLATELET ESTIMATE STAT 01/11/2025 5:0 5 PM CDT RED CELL MORPHOLOGY STAT 01/11/2025 5 :05 PM CDT CBC W PLT NO DIFF STAT 01/11/2025 5:0 5 PM CDT ,SERUM QUALITATIVE WILMER 01/11/2025 3:40 PM CDT EXTRA TUBE BLUE Today 01/11/2025 3:40 PM CDT BASIC METABOLIC PANEL STAT 01/11/2025 3:40 PM CDT ETHYLENE PLANT HELPER THIN PREP PAP DIAGNOSTIC IMAGED Routine 03/14/2024 1:45 PM CDT from Last 3 Months or Most Recently Relevant to Health Maintenance Results * US PELVIS COMPLETE TA AND TV (01/11/2025 9:12 PM CDT) Anatomical Region Laterality Modality Pelvis Ultrasound 01/11/2025 9:12 PM CDT Impressions 01/11/2025 9:20 PM CDT Small fibroid within the uterus. Otherwise unremarkable pelvic ultrasound. Narrative 01/11/2025 9:20 PM CDT For Patients: As a result of the Century Cures Act, medical imaging exams and procedure reports are released immediately into your electronic medical record. You may view this report before your referring provider. If you have questions, please contact your health care provider. EXAM: US PELVIS COMPLETE TA AND TV LOCATION: [facility] MEDICAL IMAGING DATE: 01/11/2025 INDICATION: Pain/tenderness COMPARISON: None. TECHNIQUE: Transabdominal scans were performed. Endovaginal ultrasound was performed to better visualize the adnexa. FINDINGS: UTERUS: 9 x 3.1 x 3.7 cm. Normal in size and position with 8 mm fibroid noted within the right uterine body. ENDOMETRIUM: 7 mm. Normal smooth endometrium. RIGHT OVARY: 2.2 x 1.4 x 1 cm. Normal with flow demonstrated. LEFT OVARY: 2.3 x 1.5 x 1.5 cm. Normal with flow demonstrated. No significant free fluid. Procedure Note Andrei Hawthorne MD - 01/11/2025 For Patients: As a result of the Century Cures Act, medical imagingexams and procedure reports are released immediately into your electronicmedical record. You may view this report before your referring provider.If you have questions, please contact your health care provider. EXAM: US PELVIS COMPLETE TA AND TV LOCATION: [facility] MEDICAL IMAGING DATE: 01/11/2025 INDICATION: Pain/tenderness COMPARISON: None. TECHNIQUE: Transabdominal scans were performed. Endovaginal ultrasound wasperformed to better visualize the adnexa. FINDINGS: UTERUS: 9 x 3.1 x 3.7 cm. Normal in size and position with 8 mm fibroidnoted within the right uterine body. ENDOMETRIUM: 7 mm. Normal smooth endometrium. RIGHT OVARY: 2.2 x 1.4 x 1 cm. Normal with flow demonstrated. LEFT OVARY: 2.3 x 1.5 x 1.5 cm. Normal with flow demonstrated. No significant free fluid. IMPRESSION: Small fibroid within the uterus. Otherwise unremarkable pelvicultrasound. Aurelia Arellano DO US Final Result * CT ABDOMEN PELVIS STONE PROTOCOL WO (01/11/2025 6:33 PM CDT) Anatomical Region Laterality Modality Abdomen, Pelvis, AORTA, LIVER, SPLEEN Computed Tomography 01/11/2025 6:33 PM CDT Impressions 01/11/2025 7:11 PM CDT 1. No nephroureterolithiasis. 2. Probable gallbladder sludge. 3. Trace free pelvic fluid. Narrative 01/11/2025 7:11 PM CDT For Patients: As a result of the Cures Act, medical imaging exams and procedure reports are released immediately into your electronic medical record. You may view this report before your referring provider. If you have questions, please contact your health care provider. EXAM: CT ABDOMEN PELVIS STONE PROTOCOL WO LOCATION: [facility] MEDICAL IMAGING DATE: 01/11/2025 INDICATION: Abdominal/flank pain, stone suspected; lower abdominal pain for 2.5 months. Bloating. Intermittent diarrhea. COMPARISON: None. TECHNIQUE: CT scan of the abdomen and pelvis was performed without oral or IV contrast. Multiplanar reformats were obtained. Dose reduction techniques were used. CONTRAST: None. LIMITATIONS: Large FOV FINDINGS: LOWER CHEST: Bibasilar atelectasis HEPATOBILIARY: No biliary dilatation. Probable dependent sludge in the gallbladder. PANCREAS: Unremarkable SPLEEN: Upper limits of normal in size ADRENAL GLANDS: Unremarkable KIDNEY/BLADDER: No nephroureterolithiasis or hydronephrosis. No bladder stones. BOWEL: Normal caliber appendix. No small bowel obstruction. Scattered colonic diverticula. LYMPH NODES: No significant retroperitoneal adenopathy. VASCULATURE: No abdominal aortic aneurysm. PELVIC ORGANS: Trace free fluid. Scattered pelvic phleboliths. MUSCULOSKELETAL: No acute bony abnormalities. Procedure Note Yousif West MD - 01/11/2025 For Patients: As a result of the Cures Act, medical imagingexams and procedure reports are released immediately into your electronicmedical record. You may view this report before your referring provider.If you have questions, please contact your health care provider. EXAM: CT ABDOMEN PELVIS STONE PROTOCOL WO LOCATION: [facility] MEDICAL IMAGING DATE: 01/11/2025 INDICATION: Abdominal/flank pain, stone suspected; lower abdominal painfor 2.5 months. Bloating. Intermittent diarrhea. COMPARISON: None. TECHNIQUE: CT scan of the abdomen and pelvis was performed without oral orIV contrast. Multiplanar reformats were obtained. Dose reductiontechniques were used. CONTRAST: None. LIMITATIONS: Large FOV FINDINGS: LOWER CHEST: Bibasilar atelectasis HEPATOBILIARY: No biliary dilatation. Probable dependent sludge in thegallbladder. PANCREAS: Unremarkable SPLEEN: Upper limits of normal in size ADRENAL GLANDS: Unremarkable KIDNEY/BLADDER: No nephroureterolithiasis or hydronephrosis. No bladderstones. BOWEL: Normal caliber appendix. No small bowel obstruction. Scatteredcolonic diverticula. LYMPH NODES: No significant retroperitoneal adenopathy. VASCULATURE: No abdominal aortic aneurysm. PELVIC ORGANS: Trace free fluid. Scattered pelvic phleboliths. MUSCULOSKELETAL: No acute bony abnormalities. IMPRESSION: 1. No nephroureterolithiasis. 2. Probable gallbladder sludge. 3. Trace free pelvic fluid. Aurelia Knowlesmaryann Arellano DO CT Final Result * (ABNORMAL) UA W/ SEDIMENT EXAM REFLEXED PER CRITERIA (01/11/2025 5:44 PM CDT) COLOR Yellow Yellow Color 01/11/2025 5:54 PM CDT [facility] CLARITY Clear Clear Clarity 01/11/2025 5:54 PM T [facility] SPECIFIC GRAVITY,URINE 1.020 1.010, 1.015, 1.020, 1.025 01/11/2025 5:54 PM T [facility] PH,URINE 5.5 6.0, 7.0, 8.0, 5.5, 6.5, 7.5, 8.5 01/11/2025 5:54 PM T [facility] UROBILINOGEN, QUALITATIVE Normal Normal EU/dl 01/11/2025 5:54 PM T [facility] PROTEIN, URINE Negative Negative mg/dL 01/11/2025 5:54 PM T [facility] GLUCOSE, URINE Negative Negative mg/dL 01/11/2025 5:54 PM T [facility] KETONES,URINE Trace(A) Negative mg/dL 01/11/2025 5:54 PM T [facility] BILIRUBIN,URI NE Negative Negative 01/11/2025 5:54 PM T [facility] OCCULT BLOOD,URINE Negative Negative 01/11/2025 5:54 PM T [facility] NITRITE Negative Negative 01/11/2025 5:54 PM T [facility] LEUKOCYTE ESTERASE Negative Negative 01/11/2025 5:54 PM T [facility] Urine URINE SPECIMEN / Unknown Non-Blood / Unknown 01/11/2025 5:44 PM CDT 01/11/2025 5:50 PM CDT Aureliajocelyn Roth Adan DO URINE Final Result [facility] SENDOUT INTERNAL ZIP [id number] [place] [phone] * CWS PATH REVIEW HEMATOLOGY (01/11/2025 5:05 PM CDT) PATH COMMENT Comment 01/24/2025 11:07 AM CDT [facility] Comment:This is an appended report. These results have been appended to a previously final verified report. Blood BLOOD SPECIMEN / Unknown Non-Lab Venipuncture / Unknown 01/11/2025 5:05 PM CDT 01/11/2025 5:08 PM CDT Narrative [facility] - 01/24/2025 11:07 AM CDT Recommend evaluation for iron deficiency versus thalassemia/hemoglobinopathy. Reviewed by Breann Leary MT, MS ([facility]) 01/15/25 Aurelia Arellano DO LABORATORY Edited Result - Final [facility] SENDOUT INTER[id number] [place] [phone] * (ABNORMAL) RED CELL MORPHOLOGY (01/11/2025 5:05 PM CDT) ELLIPTOCYTES Few 01/11/2025 8:32 PM CDT [facility] RBC COMMENT Present(A ) RBC morphology appears normal, RBC morphology within normal limits for newborns. 01/11/2025 8:32 PM CDT [facility] Blood BLOOD SPECIMEN / Unknown Non-Lab Venipuncture / Unknown 01/11/2025 5:05 PM CDT 01/11/2025 5:08 PM CDT Narrative [facility] - 01/11/2025 8:32 PM CDT RN to order if patient presents with abdominal pain. Aurelia Arellano DO HEMATOLOGY Final Result [facility] SENDOUT INTER[id number] [place] [address] * PLATELET ESTIMATE (01/11/2025 5:05 PM CDT) PLATELET ESTIMATE Adequate Adequate, No estimate 01/11/2025 8:32 PM CDT [facility] Blood BLOOD SPECIMEN / Unknown Non-Lab Venipuncture / Unknown 01/11/2025 5:05 PM CDT 01/11/2025 5:08 PM CDT [facility] - 01/11/2025 8:32 PM CDT RN to order if patient presents with abdominal pain. Aurelia Arellano DO HEMATOLOGY Final Result [facility] SENDOUT [place] [id number] [address] [place] [address] * (ABNORMAL) CBC W PLT NO DIFF (01/11/2025 5:05 PM CDT) WHITE BLOOD COUNT 7.7 4.5 - 11.0 thou/cu mm 01/11/2025 8:32 PM T [facility] RED BLOOD COUNT 4.70 4.00 - 5.20 mil/cu mm 01/11/2025 8:32 PM T [facility] HEMOGLOBIN 8.4(L) 12.0 - 16.0 g/dL 01/11/2025 8:32 PM T [facility] HEMATOCRIT 29.5(L) 33.0 - 51.0 % 01/11/2025 8:32 PM T [facility] MCV 63(L) 80 - 100 fL 01/11/2025 8:32 PM T [facility] MCH 17.9(L) 26.0 - 34.0 pg 01/11/2025 8:32 PM T [facility] MCHC 28.5(L) 32.0 - 36.0 g/dL 01/11/2025 8:32 PM T [facility] RDW 18.2(H) 11.5 - 15.5 % 01/11/2025 8:32 PM T [facility] PLATELET COUNT 295 140 - 440 thou/cu mm 01/11/2025 8:32 PM T [facility] MPV 10.6 6.5 - 11.0 fL 01/11/2025 8:32 PM CDT [facility] NRBC 0.0 % 01/11/2025 8:32 PM CDT [facility] ABS NRBC 0.0 thou /cu mm 01/11/2025 8:32 PM CDT [facility] Blood BLOOD SPECIMEN / Unknown Non-Lab Venipuncture / Unknown 01/11/2025 5:05 PM CDT 01/11/2025 5:08 PM CDT Narrative [facility] - 01/11/2025 8:32 PM CDT RN to order if patient presents with abdominal pain. Aurelia Arellano DO HEMATOLOGY Final Result [facility] SENDOUT INTERNAL ZIP [id number] [place] [phone] * EXTRA TUBE BLUE (01/11/2025 3:40 PM CDT) Blood BLOOD SPECIMEN / Unknown Non-Lab Venipuncture / Unknown 01/11/2025 3:40 PM CDT 01/11/2025 3:45 PM CDT Doctor Unknown LABORATORY Final Result Performing Organization Address City/[facility]/ZIP Co de Phone Number [facility] SENDOUT INTERNAL ZIP [id number] [place] [phone] * ,SERUM QUALITATIVE (01/11/2025 3:40 PM CDT) ,SERU M Negative Negative 01/11/2025 5:00 PM CDT [facility] Blood BLOOD SPECIMEN / Unknown Non-Lab Venipuncture / Unknown 01/11/2025 3:40 PM CDT 01/11/2025 3:44 PM CDT Aurelia Arellano DO CHEMISTRY Final Result [facility] SENDOUT INTERNAL ZIP [id number] [place] [phone] * (ABNORMAL) BASIC METABOLIC PANEL (01/11/2025 3:40 PM CDT) SODIUM 137 136 - 145 mmol/L 01/11/2025 9:00 PM [facility] POTASSIUM 4.1 3.5 - 5.1 mmol/L 01/11/2025 9:00 PM [facility] CHLORIDE 106 98 - 107 mmol/L 01/11/2025 9:00 PM [facility] CO2,TOTAL 01/11/2025 9:00 PM [facility] Comment: Canceled- Questionable Results This is a corrected result. Previously reported as 32 mmol/L with reference range 22-29 mmol/L on 01/11/2025 at 1636 CDT ANION GAP Unable to calculate. 01/11/2025 9:00 PM [facility] GLUCOSE 88 70 - 99 mg/dL 01/11/2025 9:00 PM [facility] CALCIUM 9.5 8.8 - 10.4 mg/dL 01/11/2025 9:00 PM [facility] Comment: Reference ranges for this test were updated on 06/06/2024 to reflect our healthy population more accurately. Reference range changes are not retroactively applied to results, but previous results using the same methodology can be interpreted in the context of the new reference range. BUN 16 6 - 20 mg/dL 01/11/2025 9:00 PM [facility] CREATININE 0.80 0.50 - 0.90 mg/dL 01/11/2025 9:00 PM [facility] BUN/CREAT RATIO 20 10 - 20 9:00 PM [facility] eGFR 90(L) >90 mL/min/1. 73m2 01/11/2025 9:00 PM [facility] Comment:As of 2021, eG FR is calculated by the CKD-EPI creatinine equation without race adjustment. eGFR can be influenced by muscle mass, exercise, and diet. The reported eGFR is an estimation only and is only applicable if the renal function is stable. Blood BLOOD SPECIMEN / Unknown Non-Lab Venipuncture / Unknown 01/11/2025 3:40 PM CDT 01/11/2025 3:44 PM CDT Aurelia Arellano DO CHEMISTRY Final Result [facility] [address] [place] [address], [facility] SENDOUT [address]NAL [id number] [place] [phone] * ETHYLENE PLANT HELPER THIN PREP PAP DIAGNOSTIC IMAGED (03/14/2024 1:45 PM CDT) Case Report Gynecologic Cytology Report Case: [id number] Authorizing Provider: Sena Pena MD Collected: 03/14/2024 1345 Ordering Location: [facility] Received: 03/15/[address] [place] [address] First Screen: Mainor Schulte Specimen: ETHYLENE PLANT HELPER ThinPrep Vial Diagnostic, Cervix 03/22/2024 2:16 PM CDT [facility] INTERPRETATION/ RESULT NEGATIVE FOR INTRAEPITHELIAL LESION OR MALIGNANCY (NIL) (none) 03/22/2024 2:16 PM CDT [facility] at 1416 CDT SPECIMEN ADEQUACY Satisfactory for evaluation No endocervical component seen 03/22/2024 2:16 PM CDT [facility] HPV REQUEST HPV and PAP 03/22/2024 2:16 PM CDT [facility] Last Pap Result First Pap/Unknown 2:16 PM CDT [facility] Martinez Bx Done Today No 03/22/2024 2:16 PM CDT [facility] Additional Information 03/22/2024 2:16 PM CDT [facility] Comment: Interpreted at [facility] - [address] [place] [phone] Automated Review Successful 03/22/2024 2:16 PM CDT [facility] Comment:Specimen processed s uccessfully by automated residential leasing manager device, ThinPrep Imaging System, [employer] ANCILLARY TESTING ETHY[employer]E [employer]ANT HELPER HPV Ordered, Please see separate report 03/22/2024 2:16 PM CDT [facility] Note The pap test [...] and malignant lesions. 03/22/2024 2:16 PM CDT [facility] Other SPECIMEN FROM UTERINE CERVIX / Unknown 03/14/2024 1:45 PM CDT 03/15/2024 1:48 PM CDT us Sena Pena MD PATHOLOGY/CYTOLOGY Final R esult [facility] [address] [place] [address], from Last 3 Months or Most Recently Relevant to Health Maintenance Insurance [facility] Member Subscriber Plan / Payer (Ef fective 2025-Present) Name:Chaparrita Hernandez Relation to Subscriber:Self Name:Chaparrita Hernandez Payer ID:Not on file Group ID:Not on file Type:Not on file Address: FOR [facility] Care Teams Aircraft Engine Specialist Relationship Specialty Start Date End Date [facility] [address] [place], [place] [id number] PCP - General 01/11/25
--- OUTSIDE RECORDS SUMMARY | 2025-01-30 21:14 | XMS_ITS | Clinical Summary ---
Author Organization [facility] Address [address] [place] [address] Care Team Providers Care Rn Progressive Care Name Role Phone Marlin Veloz Primary Care Provider [phone] Source Comments PLEASE NOTE, if this patient is a minor, it may be UNLAWFUL to discuss sensitive information that is contained in these records (such as FAMILY PLANNING, MENTAL HEALTH or SUBSTANCE ABUSE) with the minor patient's parent or other person without the patient's specific authorization.[facility] Allergies No known active allergies Medications oxybutynin XL (DITROPAN-XL) 5 mg 24 hr tablet Take 1 Tablet by mouth daily. 4 Active cholecalciferol (VITAMIN D3) 50 mcg (2,000 unit) tablet Take 1 Tablet by mouth daily. 4 Active albuterol HFA 90 mcg/actuation inhaler Inhale 1-2 puff using inhaler every four to six hours ok to sub any albuterol HFA product per insurance 4 Active Active Problems Problem Noted Date Diagnosed Date Female Stress Incontinence 05/09/2024 Adjustment disorder with mixed anxiety and depre ssed mood 06/25/2023 Insomnia 06/11/2023 Overweight (BMI 25-29.9) 06/11/2023 Migraine headache with aura 10/14/2021 Heavy menstruation 10/14/2021 Menorrhagia/menometrorrhagia 06/18/2020 Papanicolaou smear of cervix with low grade squamous intraepithelial lesion (LGSIL) 03/03/2019 Segmental and somatic dysfunction of cervical re gion 09/16/2018 Segmental and somatic dysfunction of thoracic re gion 09/16/2018 Healthy Goals 08/24/2018 Neck pain, chronic 08/24/2018 Resolved Problems Problem Noted Date Diagnosed Date Resolved Date Cough chronic 05/09/2024 01/11/2025 Pain in right shoulder 07/09/202301/11 Encounter for immunization safety counseling 01/11/2025 Screening for lipid disorders 10/14/2021 01/11/2025 Screening, diabetes mellitus 10/14/2021 01/11/2025 Screening for endocrine disease 10/14/2021 01/11/2025 BMI 28-28.9 10/14/2021 01/11/2025 Presbyopia - OU 03/19/2021 01/11/2025 Astigmatism, bilateral 03/19/202101/11 Blurred vision 03/19/2021 01/11/2025 Preventative health care 05/03/202007/2025 Screening exam for breast cancer 02/27/2019 01/11/2025 Encounters Date Type Department Care Team Description 01/16/2025 3:10 PM CDT Office Visit [facility] [address] [place] [address] Atiya Boykin CNM 01/11/2025 1:50 PM CDT Office Visit [facility] [address] [place] [address] Luiz Carrillo APRN, CNM from Last 3 Months Immunizations Immunization Administration Dates Next Due HPV 9 (Gardasil) 05/09/2024 Moderna COVID-19 Vaccine, re d cap blue label, 12+ Primary Series 11/21/2020,10/23/2020 TDAP 04/23/2021 Family History Medical History Relation Name Comments Hypertension Father Stomach Cancer Maternal Grandfather Diabetes Maternal Grandmother Hypertension Mother Ovarian cancer Neg Uterine Cancer Neg Relation Name Status Comments Father Maternal Grandfather Maternal Grandmother Mother Social History Tobacco Use Types Packs/Day Years Used Date Smoking Tobacco: Never Smokeless Tobacco: Never Tobacco Cessation:Counseling Given: Not Answered Alcohol Use Standard Drinks/Week Comments Not Currently 0 (1 standard drink = 0.6 oz pur e alcohol) Comments Unknown Sex and Gender Information Value Date Recorded Sex Assigned at Not on file Legal Sex Female 9:35 AM PST Gender Identity Female 09/10/2024 5:45 PM PST Sexual Orientation Straight 09/10/2024 5: 45 PM PST Last Filed Vital Signs Vital Sign Reading [...] Mass Index 29.35 01/16/2025 3:19 PM CDT Plan of Treatment Health Maintenance Due Date Last Done Comments HPV Screening 1975 Relationship Safety Screening/Counseling 10/09/1990 Imm-Hepatitis B (1 of 3 - 19 + 3-dose series) 10/09/1994 CT Colonography 10/09/2020 Colonoscopy 10/09/2020 Colorectal Cancer Screening 10/09/2020 FIT/gFOBT 10/09/2020 Fecal DNA 10/09/2020 Flexible Sigmoidoscopy 10/09/2020 Breast Cancer Screening (Mammogram) 05/18/2022 05/18/2020 Pap Smear 06/18/2023 06/18/2020, 02/27/2019 [id number] ( season) 2024 11/22/2021, 11/21/2020, 10/23/2020 Alcohol and Drug Screen 08/02/2024 Depression Annual Screen 08/02/2024 05/09/2024 Imm-Influenza (#1) 2025 Anxiety Screening 05/09/2025 05/09/2024 Cervical Cancer Screening 06/18/2025 Pap + HPV 06/18/2025 06/18/2020 Tobacco Screening 10/25/2025 10/25/2024 Hypertension Screening (#1) 01/16/2026 Diabetes Screening 01/12/2028 01/11/2025, 0 01/11/2025, 10/13/2024, Additional history exists Lipid Screening 05/09/2029 05/09/2024, 10/0 03/2024, 10/14/2021, Additional history exists Imm-DTaP/Tdap/Td (2 - Td or Tdap) 04/23/2031 021 HIV Screening Completed 10/13/2024, 09/30, 10/13/2024 Hepatitis C Screening Completed 10/13/2024, 025 Cervical Ablation/Cold-Knife Conization Discontinued Cervical Cryotherapy Discontinued Colposcopy Discontinued Endometrial Biopsy Discontinued Excision/Leep Discontinued HPV Genotyping Discontinued Vaginal Pap Discontinued Vulvoscopy Discontinued Procedures Procedure Name Priority Date/Time Associated Diagnosis Comments SMR PRIM SRC WET [place]OUNT NFCT AGT Routine 01/11/2025 12:00 AM CDT Lower abdominal pain RFLX - REFLEXIVE URINE CULTURE Routine 01/11/2025 12:00 AM CDT Lower abdominal pain URINALYSIS, COMPLETE W/REFLEX TO CULTURE Routine 01/11/2025 12:00 AM CDT Lower abdominal pain HCG, QL, URINE Routine 01/11/2025 12:00 AM CDT Lower abdominal pain HIV 1/2 AG & AB W/RFLX (4TH GEN) Routine 10/13/2024 9:24 AM CDT HEPATITIS C AB W/RFLX HCV RNA, QT, RT PCR Routine 10/13/2024 9:24 AM CDT Screening examination for sexually transmitted disease HEMOGLOBIN GLYCOSYLATED A1C Routine 10/13/2024 9:24 AM CDT Acute vaginitis LIPIDS W RFLX TO DIRECT LDL Routine 05/09/2024 12:58 PM CDT THIN PREP PAP + HPV RNA E6/E7 + C.TRACHOMATIS + N. GONORRHOEAE (Q) Routine 06/18/2020 4:30 PM ESCROW MANAGER MAMMOGRAM, ABSTRACTED NARRATIVE Routine 05/18/2020 11:59 PM CDT from Last 3 Months or Most Recently Relevant to Health Maintenance Results * HCG, QL, URINE Routine (01/11/2025 12:00 AM CDT) HCG, QL, URINE NEGATIVE NEGATIVE 01/11/2025 2:26 PM CDT [facility] 01/11/2025 12:0 0 AM CDT 01/11/2025 2:20 PM CDT Luiz Carrillo APRN, CNM LAB URINE AMBULATORY Fin al Result [facility] RRL - [facility] [phone] [facility] [address] [place] [address] * (ABNORMAL) URINALYSIS, COMPLETE W/REFLEX TO CULTURE Routine (01/11/2025 12:00 AM CDT) COLOR YELLOW YELLOW 01/11/2025 2:41 PM CDT [facility] APPEARANCE CLEAR CLEAR 01/11/2025 2:41 PM CDT [facility] SPECIFIC GRAVITY 1.015 1.001 - 1.035 01/11/2025 2:41 PM CDT [facility] PH 5.5 5.0 - 8.0 01/11/2025 2:41 PM CDT [facility] GLUCOSE NEGATIVE NEGATIVE 01/11/2025 2:41 PM CDT [facility] BILIRUBIN NEGATIVE NEGATIVE 01/11/2025 2:41 PM CDT [facility] KETONES NEGATIVE NEGATIVE 01/11/2025 2:41 PM CDT [facility] OCCULT BLOOD NEGATIVE NEGATIVE 01/11/2025 2:41 PM CDT [facility] PROTEIN NEGATIVE NEGATIVE 01/11/2025 2:41 PM CDT [facility] NITRITE NEGATIVE NEGATIVE 01/11/2025 2:41 PM CDT [facility] LEUKOCYTE ESTERASE NEGATIVE NEGATIVE 01/11/2025 2:41 PM CDT [facility] WBC 0-5 0 - 5 /HPF 01/11/2025 2:41 PM CDT [facility] RBC NONE SEEN 0 - 2 /HPF 01/11/2025 2:41 PM CDT [facility] SQUAMOUS EPITHELIAL CELLS 0-5 < OR = 5 /HPF 01/11/2025 2:41 PM CDT [facility] BACTERIA FEW(A) NONE SEEN /HPF 01/11/2025 2:41 PM CDT [facility] HYALINE CAST NONE SEEN NONE SEEN /LPF 01/11/2025 2:41 PM CDT [facility] COMMENTS MODERATE MUCOUS THREADS 01/11/2025 2:41 PM CDT [facility] NOTE SEE NOTE 01/11/2025 2:41 PM CDT [facility] 01/11/2025 12:0 0 AM CDT 01/11/2025 2:20 PM CDT Narrative [facility] - [facility] - 01/11/2025 2:45 PM CDT This urine was analyzed for the presence of WBC, RBC, bacteria, casts, and other formed elements. Only those elements seen were reported. . . Luiz Carrillo APRN, CNM LAB URINE AMBULATORY Fin al Result [facility]) [facility] - [facility] [phone] [facility] [address] [place] [address] * RFLX - REFLEXIVE URINE CULTURE Routine (01/11/2025 12:00 AM CDT) REFLEXIVE URINE CULTURE SEE NOTE 01/11/2025 2:41 PM CDT [facility] 01/11/2025 12:0 0 AM CDT 01/11/2025 2:20 PM CDT Narrative [facility] - 01/11/2025 2:45 PM CDT NO CULTURE INDICATED Luiz Carrillo APRN, CNM LAB - MICROBIOLOGY AMBUL ATORY Final Result [facility] [address] [place] [address] [facility] [place] [facility] [address] [place] [address] * SMR PRIM SRC WET MOUNT NFCT AGT Routine (01/11/2025 12:00 AM CDT) SOURCE VAGINA 01/11/2025 2:43 PM CDT [facility] Wet Prep SEE NOTE 01/11/2025 2:43 PM CDT [facility] 01/11/2025 12:0 0 AM CDT 01/11/2025 2:20 PM CDT Narrative [facility] RR - [facility] - 01/11/2025 2:45 PM CDT EPI CELLS SEEN CLUE CELLS NONE SEEN TRICH NONE SEEN YEAST NONE SEEN Luiz Carrillo APRN, CNM LAB - NO BLOOD DRAW Sarina l Result [facility] [phone] [facility] [address] [place] [address] * HEPATITIS C AB W/RFLX HCV RNA, QT, RT PCR (10/13/2024 9:24 AM CDT) Pathologist [facility] HEPATITIS C ANTIBODY NON-REACTI VE NON-REACT DOTTIE 10/16/2024 1:12 PM CDT [facility] Blood Blood / Unknown 10/13/2024 9 :24 AM CDT 10/13/2024 1:12 PM CDT Narrative [facility] - 10/16/2024 1:16 PM CDT . HCV antibody was non-reactive. There is no laboratory evidence of HCV infection. . In most cases, no further action is required. However, if recent HCV exposure is suspected, a test for HCV RNA (test code 45750) is suggested. . For additional information please refer to http://education.Numonyx.Carbonetworks/faq/YQU76s1 (This link is being provided for informational/ educational purposes only.) . [facility] LAB - BLOOD DRAW Final Result Performing Organization Address City/[facility] Co de Phone Number [facility] [address] [place] [address] [facility] [address] [place] [address] * HIV 1/2 AG & AB W/RFLX (4TH GEN) Routine (10/13/2024 9:24 AM CDT) Pathologist [facility] HIV AB NON-REACTI VE NON-REACT DOTTIE 10/16/2024 1:16 PM CDT DATA CONVERSION Comment:See lab report for a ssociated comment(s) 10/13/2024 9:24 AM CDT [facility] Provider Default LAB - BLOOD DRAW Final R esult Performing Organization Address City/[facility] Co de Phone Number DATA CONVERSION * LIPIDS W RFLX TO DIRECT LDL (05/09/2024 12:58 PM CDT) Pathologist [facility] CHOLESTEROL 175 <200 mg/dL 05/10/2024 7:55 AM CDT DATA CONVERSION 05/09/2024 12:5 8 PM CDT [facility] Provider Default LAB - BLOOD DRAW Final R esult Performing Organization Address City/[facility] Co de Phone Number DATA CONVERSION * (ABNORMAL) THIN PREP PAP + HPV RNA E6/E7 + C.TRACHOMATIS + N. GONORRHOEAE (Q) (06/18/2020 4:30 PM ESCROW MANAGER) PREV. PAP * 06/22/2020 9:16 PM ESCROW MANAGER DATA CONVERSION Comment:See lab report for a ssociated comment(s) STATEMENT OF ADEQUACY: * 06/22/2020 9:16 PM ESCROW MANAGER DATA CONVERSION Comment:See lab report for a ssociated comment(s) Comment * 06/22/2020 9:16 PM ESCROW MANAGER DATA CONVERSION Comment:See lab report for a ssociated comment(s) INTERPRETATION/ RESULT *(A) 06/22/2020 9:16 PM ESCROW MANAGER DATA CONVERSION Comment:See lab report for a ssociated comment(s) 06/18/2020 4:30 PM ESCROW MANAGER us [facility] Provider Default LAB - PATHOLOGY AND CYTO LOGY AMBULATORY Final Result DATA CONVERSION * MAMMOGRAM, ABSTRACTED NARRATIVE (05/18/2020 11:59 PM CDT) Anatomical Region Laterality Modality Other 05/18/2020 11:5 9 PM CDT Narrative 05/18/2020 11:59 PM CDT [facility] Provider Default IMG MAMMO Final Re sult from Last 3 Months or Most Recently Relevant to Health Maintenance Care Teams Rn Progressive Care Relationship Specialty Start Date End Date Marlin Veloz [address] [place] [address] PCP - General 09/10/24
--- NOTE | 2025-01-30 21:17 | ED_ITS ---
HPI - General Adult General Time Seen by Provider: 21:17 Date Seen: 01/30/25 Chief complaint: Abdominal Pain Stated complaint: Abdominal pain Time Seen by Provider: 01/30/25 21:17 Source: patient, RN notes reviewed and old records reviewed History of Present Illness HPI narrative: 49-year-old female who comes in today with 2 months of abdominal pain. She has been seen at this emergency department a couple weeks ago, also was seen a [place] [facility] and had a follow-up appointment with [facility] on January 16, his felt her pain is related to the to a uterine leiomyoma. She returns today with ongoing pain. She reports low abdominal pain which comes and goes, also bloating in the upper abdomen. No nausea vomiting, says she feels constipated. Denies fevers or chills, menses have become irregular in last couple of months. Related Data Previous Rx's ?Medication ?Instructions ?Recorded ketorolac 10 mg tablet 10 mg PO TID 5 days #15 tabs 01/10/25 methylprednisolone 4 mg tablets in See Rx Instructions PO .COMPLEX 01/10/25 a dose pack (Medrol (Florentin)) #21 ea ondansetron HCl 4 mg tablet 4 mg PO Q6H #20 tabs 01/10 dicyclomine 20 mg tablet 20 mg PO QID PRN abdominal p ain 01/31/25 #20 tabs ferrous gluconate 324 mg (38 mg 324 mg PO DAILY #30 ta bs 01/31/25 iron) tablet pantoprazole 40 mg tablet,delayed 40 mg PO DAILY #30 t abs 01/31/25 release (Protonix) Allergies Allergy/AdvReac Type Severity Reaction Status Date / Time No Known Drug Allergies Allergy Verified 01/30/25 21:25 [facility] Medical History (Updated 01/30/25 @ 23:06 by Azael Nichols RN) Segmental and somatic dysfunction of cervical region ?M99.01 - Segmental and somatic dysfunction of cervical region (ICD-10) Segmental and somatic dysfunction of thoracic region ?M99.02 - Segmental and somatic dysfunction of thoracic region (ICD-10) Insomnia ?G47.00 - Insomnia, unspecified (ICD-10) Female stress incontinence ?N39.3 - Stress incontinence (female) (male) (ICD-10) Adjustment disorder with mixed anxiety and depressed mood ?F43.23 - Adjustment disorder with mixed anxiety and depressed mood (ICD-10) Migraine headache with aura ?G43.109 - Migraine with aura, not intractable, without status migrainosus (ICD-10) Menometrorrhagia ?N92.1 - Excessive and frequent menstruation with irregular cycle (ICD-10) Menorrhagia ?N92.0 - Excessive and frequent menstruation with regular cycle (ICD-10) Neck pain, chronic ?M54.2 - Cervicalgia (ICD-10) ?G89.29 - Other chronic pain (ICD-10) LGSIL (low grade squamous intraepithelial dysplasia) Generalized abdominal pain ?R10.84 - Generalized abdominal pain (ICD-10) Uterine leiomyoma ?D25.9 - Leiomyoma of uterus, unspecified (ICD-10) Social History Smoking Status: Never smoker Do you use any of these nicotine containing products: None Second hand tobacco smoke exposure: No How often do you have a drink containing alcohol: never How often do you have six or more drinks on one occasion: Never AUDIT-C Alcohol total score: 0 Non-prescribed substance use: denies use service: No Exam Narrative: Exam Narrative: General: Well-developed and well-nourished, see any appears uncomfortable but nontoxic Head: Atraumatic and normocephalic Eyes: Pupils are equal reactive, extraocular motions intact, conjunctiva clear ENT: External nose and ears are normal, posterior pharynx without erythema or exudate Neck: No midline cervical tenderness, full spontaneous range of motion the neck, trachea midline, no adenopathy Heart: Regular rate and rhythm no murmurs or thrills Lungs: Clear to auscultation bilaterally without wheezes or crackles Abdomen: Soft, suprapubic tenderness, nondistended with active bowel sounds Musculoskeletal: No tenderness, deformity, or edema Neurologic: Awake, alert, and oriented x3, no gross focal neurologic deficits, cranial nerves intact as tested Psych: Mood and affect are appropriate Skin: No rashes Const: Vital Signs, click to edit/add: Vital Signs - 24 hr 01/30/25 21:20 01/30/25 22:11 01/30/25 23:56 Temperature 97.3 F L 97.3 F L 97.3 F L Pulse Rate [Right Pulse Oximeter] 94 Respiratory Rate 18 Blood Pressure [Ri ght Upper Arm] 127/77 Pulse Oximetry 98 Oxygen Delivery Me thod Room Air 01/30/25 23:59 01/31/25 00:00 Temperature 98.4 F Pulse Rate [Right Pulse Oximeter] 85 Respiratory Rate 18 Blood Pressure [Ri ght Upper Arm] 124/74 Pulse Oximetry 98 98 Oxygen Delivery Me thod Room Air Course Course ED Course: Reviewed most recent emergency department visit from January 10 which was also for abdominal pain, at that time hemoglobin 8.8 but normal CBC otherwise, normal basic panel, normal hepatic panel in negative CRP, normal lipase. CT scan negative for acute findings. Also reviewed clinic visit from January 16 which was for abdominal pain in uterine leiomyoma, referred security infrastructure engineer and that appointment is upcoming next week. Patient presents today with lower abdominal pain which is been ongoing for 2 months, also constipation and abdominal bloating. Multiple prior emergency department clinic valuation for this. On exam here vital is stable, mild suprapubic tenderness, no palpable masses on exam. Toradol and Bentyl ordered for symptoms, labs ordered, defer further imaging for now given multiple prior imaging studies. Reevaluation(s) Time of Reevaluation #1: 22:54 Reevaluation #1: Urinalysis independently interpreted by me is negative for acute findings. I was able to gain access from patient's records from her visit outside emergency department on January 11, she had a CT abdomen and pelvis at that time which demonstrated gallbladder sludge but no findings of acute cholecystitis. Ultrasound at that time demonstrated an 8 mm fibroid. It is unlikely that this tiny fibroid is the cause of patient's symptoms. She is mostly lower abdominal pain but also some bloating sensation, symptoms could be related to Biliary colic, although she has no upper abdominal tenderness. Hepatic panel and lipase are pending at this time. Anticipate discharge with outpatient follow-up. In reviewed patient's labs, hemoglobin today is 8.5 which is stable for the patient, she has low MCV, low MCH, and elevated RDW. She has had this anemia at prior visits this month but no prior records are available to see how acute this is. With her abdominal bloating, concern for other intra-abdominal process including gastritis, or bleeding from mass. Patient should have colonoscopy EGD performed, will be started on Protonix and iron replacement, additional red cells studies are ordered. Time of Reevaluation #2: 23:18 Reevaluation #2: labs independently interpreted by me with normal lipase and normal hepatic panel. Patient remains vital is stable in the emergency department. We discussed findings today including anemia unknown source, as well as the sludge in the gallbladder and the uterine fibroid which I do not think is the source of patient's symptoms. Patient will be started on Bentyl, Protonix. She should follow-up to have endoscopy done and can follow-up with handstitching machine collar feller as well. Time of Reevaluation #3: 00:42 Reevaluation #3: A long conversation with patient regarding findings and plan. We discussed that I do not think the uterine fibroid is the source of patient's symptoms but I still think she should follow-up with OBGYN for evaluation for other causes of her pelvic pain. She also is wondering about her abnormal menstrual cycles last couple months, I suspect she is approaching menopause. With her generalized abdominal pain and bloating as well as anemia, in concerned about intestinal sources symptoms. Will refer to primary care for evaluation for EGD and colonoscopy. Patient will be discharged with Carafate, Bentyl, oxycodone and follow-up instructions. Vital Signs Vital signs: Initial Vital Signs Temperature 97.3 F L 01/30/25 21:20 Temperature Source Temporal Artery Scan 01/30/25 21:20 Pulse Rate 94 01/30/25 21:20 Pulse Rhythm Regular 01/30/25 21:20 Pulse Strength 3+ Normal 01/30/25 21:20 Respiratory Rate 18 01/30/25 21:20 Blood Pressure 127/77 01/30/25 21:20 Blood Pressure Mean 93 01/30/25 21:20 Blood Pressure Position Supine 01/30/25 21:20 Pulse Oximetry 98 01/30/25 21:20 Oxygen Delivery Method Room Air 01/30/25 21:20 Vital Signs Temperature 97.3 F L 01/30/25 21:20 Pulse Rate 94 01/30/25 21:20 Respiratory Rate 18 01/30/25 21:20 Blood Pressure 127/77 01/30/25 21:20 Pulse Oximetry 98 01/30/25 21:20 Oxygen Delivery Method Room Air 01/30/25 21:20 Temperature 98.4 F 01/31/25 00:00 Pulse Rate 85 01/31/25 00:00 Respiratory Rate 18 01/31/25 00:00 Blood Pressure 124/74 01/31/25 00:00 Pulse Oximetry 98 01/31/25 00:00 Oxygen Delivery Method Room Air 01/31/25 00:00 Medications Administered Medications: Generic Name Dose Route Start Last Admin Trade Name Anahi PRN Reason Stop Dose Admin Oxycodone HCl 5 mg 01/30/25 23:45 01/30/25 23:51 Oxycodone 5 Mg Tablet PO 01/30/25 23:46 5 mg ONCE ONE Administration Discontinued Medications Generic Name Dose Route Start Last Admin Trade Name Anahi PRN Reason Stop Dose Admin Dicyclomine HCl 10 mg 01/30/25 21:45 01/30/25 22:12 Dicyclomine Hcl 10 Mg Capsule PO 01/30/25 21:46 10 mg ONCE ONE Administration Ketorolac Tromethamine 15 mg 01/30/25 21:44 01/30/25 22:11 Ketorolac 15 Mg/Ml Inj IVP 01/30/25 21:45 15 mg ONCE ONE Administration Medical Decision Making Lab Data Labs: Lab Results 01/30/25 01/30/25 Range/Units 22:14 22:59 WBC 6.26 (4.50-11.00) K/uL RBC 4.66 (4.00-5.20) m/uL Hgb 8.5 L (12.0-16.0) gm/dL Hct 29.9 L (33.0-51.0) % MCV 64 L (80-100) fL MCH 18 L (26-34) pg MCHC 28 L (32-36) gm/dL RDW Coeff of [place] 19.0 H (11.5-15.5) % Plt Count 409 (140-440) K/uL Neut % (Auto) 52.7 (42.0-72.0) % Lymph % (Auto) 38.0 (20-44) % [place] % (Auto) 7.2 (0.0-11.0) % Eos % (Auto) 1.3 (0.0-7.0) % Baso % (Auto) 0.6 (0.0-3.0) % Neut # (Auto) 3.30 (1.7-7.0) K/uL Lymph # (Auto) 2.38 (0.90-2.90) K/uL [place] # (Auto) 0.50 (0.00-0.90) K/UL Eos # (Auto) 0.08 (0.00-0.50) K/uL Baso # (Auto) 0.04 (0.00-0.30) K/uL Abs Immat Gran (auto) 0.01 (0.00-0.30) K/uL Imm/Tot Granulo (auto) 0.2 % Sodium 137 (135-149) mmol/L Potassium 4.0 (3.6-5.1) mmol/L Chloride 104 (96-114) mmol/L Carbon Dioxide 25 (20-32) mmol/L Anion Gap 8 (7-15) mEq/L BUN 18 (5-24) mg/dL Creatinine 0.9 (0.5-1.5) mg/dL Estimated Creat Clear 65.29 Estimated GFR 78 ml/min Glucose 95 (60-115) mg/dL Calcium 9.4 (8.4-10.6) mg/dL Iron 26 L (37-170) ug/dL TIBC 536 H (265-497) ug/dL % Saturation 5 L (20-50) % Ferritin 3.8 L (6.24-137.0) ng/mL Total Bilirubin 0.3 (0.1-1.5) mg/dL Direct Bilirubin 0.1 (0.0-0.5) mg/dL AST 30 (12-35) U/L ALT 23 (4-35) U/L Alkaline Phosphatase 68 (40-150) U/L Total Protein 8.5 H (6.0-8.3) g/dL Albumin 4.6 (3.3-5.0) g/dL Lipase 90 (23-300) U/L Urine Color Yellow (Yellow) Urine Appearance Clear (Clear) Urine pH 6.0 (5.0-8.5) Ur Specific [place] <= 1.005 (1.000-1.030) Urine Protein Negative (Negative) Urine Glucose (UA) Negative (Negative) Urine Ketones Negative (Negative) Urine Blood Negative (Negative) Urine Nitrite Negative (Negative) Urine Bilirubin Negative (Negative) Urine Urobilinogen 0.2 (0.2-1.0) Ur Leukocyte Esterase Negative (Negative) Urine RBC 0-2 (0-2) Urine WBC 0-2 (0-5) Ur Squamous Epith Cells Few (None-Few) Urine Bacteria None (None) Lab Acknowledgement Test Added Discharge Plan Discharge Clinical Impression: Abdominal pain, Anemia Patient Disposition: Home, Self-Care Condition: Stable Instructions: Abdominal Pain (ED), Anemia (ED), Heat Pack Application (ED), Pelvic Pain (ED), Colonoscopy (DC) Additional Instructions: Take medications as prescribed Take iron supplement as prescribed Follow-up in clinic as soon as possible Medicamentos seg?n prescripci?n m?dica. [place] el suplemento de danie seg?n prescripci?n m?dica. Consulte en la cl?raphael lo antes posible. Activity Level: Activity as Tolerated Discharge Diet: Regular Prescriptions: New dicyclomine 20 mg tablet 20 mg PO QID PRN (Reason: abdominal pain) Qty: 20 0RF pantoprazole [Protonix] 40 mg tablet,delayed release (DR/EC) 40 mg PO DAILY Qty: 30 0RF ferrous gluconate 324 mg (38 mg iron) tablet 324 mg PO DAILY Qty: 30 0RF No Action ondansetron HCl 4 mg tablet 4 mg PO Q6H Qty: 20 0RF ketorolac 10 mg tablet 10 mg PO TID 5 Days Qty: 15 0RF methylprednisolone [Medrol (Florentin)] 4 mg tablets,dose pack See Rx Instructions .ROUTE .COMPLEX Qty: 21 0RF Rx Instructions: orally per package directions Follow Up/Referrals: Provider,Not a Local [Primary Care Provider, Family Practice] Stand Alone Forms: MyHealth Info Instructions
[2025-01-30 21:20] VITALS: BP 127/77; PULSE 94; RESP 18; TEMP 36.3; O2SAT 98; BMI 29.9
[2025-01-30 22:11] VITALS: TEMP 36.3
[2025-01-30] MEDS: DICYCLOMINE HCL 10 MG CAPSULE PO (22:12)
[2025-01-30 22:29] LABS: Appearance Urine Clear (Clear)
[2025-01-30 22:54] LABS: Hematocrit* 29.9 % (33.0-51.0); Hemoglobin* 8.5 gm/dL (12.0-16.0); Immature Granulocytes Abs Auto 0.01 K/uL (0.00-0.30); Immature Granulocytes Pct Auto 0.2 %; Lymphocytes Absolute Auto 2.38 K/uL (0.90-2.90); Mean Corpuscular HGB Conc 28 gm/dL (32-36); Mean Corpuscular Hemoglobin 18 pg (26-34); Mean Corpuscular Volume 64 fL (80-100); RDW Coefficient of Variation % 19.0 % (11.5-15.5); Red Blood Count* 4.66 m/uL (4.00-5.20); White Blood Count* 6.26 K/uL (4.50-11.00)
[2025-01-30 22:55] LABS: Slide Review Reflex No
[2025-01-30 23:00] LABS: Albumin* 4.6 g/dL (3.3-5.0); Chloride* 104 mmol/L (96-114); Potassium* 4.0 mmol/L (3.6-5.1); Sodium* 137 mmol/L (135-149)
[2025-01-30 23:03] LABS: Alanine Aminotransferase* 23 U/L (4-35); Alkaline Phosphatase* 68 U/L (40-150); Anion Gap 8 mEq/L (7-15); Aspartate Amino Transferase* 30 U/L (12-35); Bilirubin Direct* 0.1 mg/dL (0.0-0.5); Bilirubin Total* 0.3 mg/dL (0.1-1.5); Blood Urea Nitrogen* 18 mg/dL (5-24); Calcium* 9.4 mg/dL (8.4-10.6); Carbon Dioxide* 25 mmol/L (20-32); Creatinine* 0.9 mg/dL (0.5-1.5); Est. Creatinine Clearance* 65.29; Estimated Glomerular Filt Rate 78 ml/min; Glucose* 95 mg/dL (60-115); Total Protein* 8.5 g/dL (6.0-8.3)
[2025-01-30 23:30] LABS: Iron* 26 ug/dL (37-170)
[2025-01-30 23:40] LABS: Percent Iron Saturation 5 % (20-50); Total Iron Binding Capacity 536 ug/dL (265-497)
[2025-01-30 23:56] VITALS: TEMP 36.3
[2025-01-30 23:59] VITALS: O2SAT 98
[2025-01-31] VITALS: BP 124/74; PULSE 85; RESP 18; TEMP 36.9; O2SAT 98
[2025-01-31 01:00] VITALS: BP 121/78; PULSE 81; RESP 18; TEMP 36.9; O2SAT 98
[2025-01-31 01:01] VITALS: BP 121/78; PULSE 81; RESP 18; TEMP 36.9
[2025-02-01 15:10] LABS: Transferrin 434 mg/dL (200-360)
== END 2025-01-31 01:01 | disposition home or self-care (01) ==
PROVIDERS: Emergency Provider Family Medicine
DX: R10.9 Unspecified abdominal pain (principal); D64.9 Anemia, unspecified; M54.50 Low back pain, unspecified; R14.0 Abdominal distension (gaseous)
CPT/HCPCS: 36415; 80048; 80076; 81001; 82728; 83540; 83550; 83690; 84466; 85025; 94761; 96374; 99284; A9270; J1885

== ENCOUNTER 2025-02-09 10:45 | Outpatient (CLI) | payer MEDICAID, SELFPAY ==
--- NOTE | 2025-02-09 10:45 | CRLHL7_ITS ---
For Patients: As a result of the Century Cures Act, medical imaging exams and procedure reports are released immediately into your electronic medical record. You may view this report before your referring provider. If you have questions, please contact your health care provider. INDICATION: ABDOMINAL PAIN COMPARISON: CT 01/10/2025 TECHNIQUE: Real time montaño scale imaging and color Doppler analysis was performed of the gallbladder. FINDINGS: The gallbladder is of normal size and there is no evidence of intraluminal stones or sludge. The gallbladder wall measures 1.7 mm in thickness. The common bile duct is of normal size and measures 5.4 mm in diameter at the level of the rickey hepatis. IMPRESSION: Normal gallbladder ultrasound. Dictated by Lamont Castillo MD @ 02/09/2025 11:13:55 AM (Electronically Signed)
== END 2025-02-09 10:46 | disposition home or self-care (01) ==
PROVIDERS: PCP Internal Medicine; Visit Provider Internal Medicine
DX: R10.9 Unspecified abdominal pain (principal)
CPT/HCPCS: 76705; T1013

== ENCOUNTER 2025-02-19 08:29 | Outpatient (CLI) | payer MEDICAID, OTHER, SELFPAY ==
--- NOTE | 2025-02-19 09:44 | P.ANES_ITS ---
Anesthesia Charges Start Date/Time Anesthesia Start Date: 02/19/25 Anesthesia Start Time: 09:07 Stop Date/Time Anesthesia Stop Date: 02/19/25 Anesthesia Stop Time: 09:42 Coding CPT Codes CPT Codes: ANES UPR LWR GI NDSC PX - 07620 ([id number]) P1 - NORMAL HEALTHY PATIENT, QX - WHEEL MOLDER SVPurvi W/ MED DIRECTION, QK - PIERCING SPECIALIST 2-4 CNCRNT ANES PROC
--- NOTE | 2025-02-19 09:44 | W.ANESCHARGE ---
Anesthesia Charges Start Date/Time Anesthesia Start Date: 02/19/25 Anesthesia Start Time: 09:07 Stop Date/Time Anesthesia Stop Date: 02/19/25 Anesthesia Stop Time: 09:42 Coding CPT Codes CPT Codes: ANES UPR LWR GI NDSC PX - 67576 ([id number]) P1 - NORMAL HEALTHY PATIENT, QX - PHARMACEUTICAL PHYSICIAN SVPurvi W/ MED DIRECTION, QK - TRAFFIC LINE PAINTER 2-4 CNCRNT ANES PROC
--- NOTE | 2025-02-19 09:57 | P.ANES_ITS ---
Anesthesia Charges Start Date/Time Anesthesia Start Date: 02/19/25 Anesthesia Start Time: 09:07 Stop Date/Time Anesthesia Stop Date: 02/19/25 Anesthesia Stop Time: 09:42 Coding CPT Codes CPT Codes: ANES UPR LWR GI NDSC PX - 96937 ([id number]) QK - MANAGER BUDGET 2-4 CNCRNT ANES PROC, QX - TEAM CDL DRIVER SVC W/ MED DIRECTION, P1 - NORMAL HEALTHY PATIENT
--- NOTE | 2025-02-19 09:57 | W.ANESCHARGE ---
Anesthesia Charges Start Date/Time Anesthesia Start Date: 02/19/25 Anesthesia Start Time: 09:07 Stop Date/Time Anesthesia Stop Date: 02/19/25 Anesthesia Stop Time: 09:42 Coding CPT Codes CPT Codes: ANES UPR LWR GI NDSC PX - 94335 ([id number]) QK - CERTIFIED REGISTERED NURSE PRACTITIONER 2-4 CNCRNT ANES PROC, QX - DEPUTY CLERK OF SUPERIOR COURT SVC W/ MED DIRECTION, P1 - NORMAL HEALTHY PATIENT
== END 2025-02-19 08:30 | disposition home or self-care (01) ==
LOC: OP CLINIC 08:30
PROVIDERS: PCP Internal Medicine; Visit Provider Internal Medicine
DX: R10.84 Generalized abdominal pain (principal); R10.13 Epigastric pain; K57.30 Diverticulosis of large intestine without perforation or abscess without bleeding
CPT/HCPCS: 00813; 43239; 45380; 88305; T1013; J2704; J3010

== ENCOUNTER 2025-02-27 13:49 | Outpatient (CLI) | payer MEDICAID, OTHER, SELFPAY ==
--- NOTE | 2025-02-27 14:00 | CRLHL7_ITS ---
For Patients: As a result of the Century Cures Act, medical imaging exams and procedure reports are released immediately into your electronic medical record. You may view this report before your referring provider. If you have questions, please contact your health care provider. INDICATION: Abdominal pain. TECHNIQUE: 7.2 mCi Tc-99m labeled Choletec. 1.56 mcg CCK IV. FINDINGS: Normal uptake and excretion of tracer by the liver. Activity is identified promptly within the gallbladder and extrahepatic biliary tree between 5 and 10 minutes after injection. The gallbladder continues to fill up to 1 hour. No biliary leak. After the administration of CCK, the gallbladder ejection fraction is calculated at 97 percent which is within normal limits. IMPRESSION: 1. Normal HIDA scan. 2. Normal gallbladder ejection fraction. Dictated by Ze Velasquez MD @ 03/01/2025 12:23:35 PM (Electronically Signed)
== END 2025-02-27 13:50 | disposition home or self-care (01) ==
LOC: NM 13:50
PROVIDERS: PCP Internal Medicine; Visit Provider Internal Medicine
DX: R10.9 Unspecified abdominal pain (principal)
CPT/HCPCS: 78227; T1013; A9537; J2805

== ENCOUNTER 2025-03-07 10:28 | Outpatient (CLI) | payer MEDICAID, OTHER, SELFPAY | END 2025-03-07 10:29 | disposition home or self-care (01) | LOC: NFLDREF 10:28 | PROVIDERS: PCP Internal Medicine; Visit Provider Internal Medicine | DX: R10.9 Unspecified abdominal pain (principal); A04.8 Other specified bacterial intestinal infections | CPT/HCPCS: 86703 ==

== ENCOUNTER 2025-04-20 10:56 | Outpatient (CLI) | payer MEDICAID, SELFPAY | END 2025-04-20 10:57 | disposition home or self-care (01) | PROVIDERS: PCP Internal Medicine; Visit Provider Obstetrics & Gynecology | DX: N95.1 Menopausal and female climacteric states (principal); R30.0 Dysuria | CPT/HCPCS: 82670; 83001; 83002; 84443; 87086 ==

== ENCOUNTER 2025-04-27 10:29 | Outpatient (CLI) | payer MEDICAID, SELFPAY ==
--- NOTE | 2025-04-27 10:45 | CRLHL7_ITS ---
For Patients: As a result of the Century Cures Act, medical imaging exams and procedure reports are released immediately into your electronic medical record. You may view this report before your referring provider. If you have questions, please contact your health care provider. CLINICAL HISTORY: Pelvic pain COMPARISON: None. TECHNIQUE: 2D montaño-scale ultrasound. In addition, color Doppler and spectral Doppler analysis was performed of the pelvis using a transabdominal and transvaginal approach. Transvaginal imaging performed to better visualize the endometrial stripe and ovaries. FINDINGS: Uterus measures 9.3 x 4.5 x 5.7 cm. No uterine fibroid. Uterine echotexture is heterogeneous. The endometrial lining measures 5.6 millimeters. The right ovary measures 3.2 x 1.6 x 1.6 cm in size and the left ovary measures 2.9 x 1.9 x 1.9 cm. The ovaries demonstrate normal arterial and venous blood flow on color Doppler and spectral Doppler analysis. There are no suspicious fluid collections within the cul-de-sac. Simple right paraovarian cyst measures 9 x 9 x 9 millimeters. IMPRESSION: 9 millimeter right paraovarian cyst. Heterogeneous uterine myometrium. Remainder unremarkable. Dictated by Lamont Castillo MD @ 04/27/2025 11:47:48 AM (Electronically Signed)
== END 2025-04-27 10:30 | disposition home or self-care (01) ==
LOC: US 10:30
PROVIDERS: PCP Internal Medicine; Visit Provider Obstetrics & Gynecology
DX: R10.2 Pelvic and perineal pain (principal); N83.201 Unspecified ovarian cyst, right side
CPT/HCPCS: 76830; 76856; 93976; T1013

== ENCOUNTER 2025-07-31 09:15 | Outpatient (CLI) | payer MEDICAID, SELFPAY ==
--- NOTE | 2025-07-31 09:15 | CRLHL7_ITS ---
For Patients: As a result of the Century Cures Act, medical imaging exams and procedure reports are released immediately into your electronic medical record. You may view this report before your referring provider. If you have questions, please contact your health care provider. INDICATION: BILATERAL SCREENING MAMMOGRAM, ASYMPTOMATIC 49 Y/O FEMALE COMPARISON: 06/13/2024, 01/07/2023 TECHNIQUE: Digital mammogram in CC and MLO projections including computer-aided detection (CAD) and tomosynthesis. BREAST COMPOSITION: The breasts are heterogeneously dense, which may obscure small masses. FINDINGS: No suspicious findings. ASSESSMENT: BI-RADS 1 Negative RECOMMENDATION: Annual screening mammogram. A lay language report of this examination will be provided to the patient. Dictated by: Lamont Castillo MD @ 07/31/2025 12:16:05 (Electronically Signed)
== END 2025-07-31 09:16 | disposition home or self-care (01) ==
LOC: MAMMO 09:16
PROVIDERS: PCP Internal Medicine; Visit Provider Internal Medicine
DX: Z12.31 Encounter for screening mammogram for malignant neoplasm of breast (principal); R92.333 Mammographic heterogeneous density, bilateral breasts
CPT/HCPCS: 77063; 77067